=== PATIENT | male | born 1985 | race Caucasian/White ===

== ENCOUNTER → 2016-07-24 | Outpatient (CLI) | payer OTHER ==
--- NOTE | 2016-07-24 17:48 | RADIOLOGY REPORT PS360 ---
US RUQ-(ABD LTD)1ORGAN/QUAD/FU ORDERING PHYSICIAN : Dilip Chavez MD PATIENT AGE: 30 years GENDER: Male INDICATION: ELEVATED LIVER ENZYMES TECHNIQUE: Ultrasound right upper quadrant COMPARISON: None FINDINGS Pancreas. Unremarkable. Liver. No focal lesions. Diffuse mild changes. Right kidney. Normal. 10.6 seem in length. Unremarkable Gallbladder. Trace sludge. No gallstones. Common duct normal diameter. 2.5 mm at hilum of liver IMPRESSION: Gallbladder. No gallstones. Common duct normal Liver with mild diffuse fatty changes, but no significant findings otherwise
== END ==
LOC: RAD 07:44
DX: R74.8 Abnormal levels of other serum enzymes (principal)

== ENCOUNTER 2017-01-15 14:15 | Outpatient (CLI) | payer OTHER ==
[~2017-01-15 14:15] MED LIST: ROSUVASTATIN CA10 MG PO
[2017-01-15] MEDS ORDERED: THE MEDICINE S300 MG PO (15:55)
[2017-01-15] MEDS ORDERED: ZYRTEC ALLERGY10 MG PO (15:56)
[2017-01-15] MEDS ORDERED: CBD OIL PO (16:00)
[2017-01-15] MEDS ORDERED: BACTRIM DS TAB1 EACH PO (16:03)
[2017-01-15] MEDS ORDERED: PERCOCET 5/3251 EACH PO (16:04)
[2017-01-15] MEDS ORDERED: APAP/HYDROCODON1 T10 PO (16:06)
[2017-01-15 16:07] LABS: LYMPH # 2.1 K/mm3 (0.7-4.5)
[2017-01-15 16:10] LABS: HEMOGLOBIN 16.2 g/dL (14.1-18.0)
[2017-01-15 16:19] LABS: BUN 11 mg/dL (7-18); GFR (ESTIMATED) 77 ML/MIN (>60)
[2017-01-15 16:50] VITALS: BP 144/72
[2017-01-15 17:43] VITALS: BP 140/70
[2017-01-15 18:45] VITALS: BP 145/60
[2017-01-15 19:09] VITALS: BP 119/82
== END 2017-01-15 19:11 | disposition home or self-care (01) ==
LOC: COP 14:15
PROVIDERS: Orthopaedic Surgery
DX: S92.322A Displaced fracture of second metatarsal bone, left foot, initial encounter for closed fracture (principal); S92.315D Nondisplaced fracture of first metatarsal bone, left foot, subsequent encounter for fracture with routine healing; S91.312A Laceration without foreign body, left foot, initial encounter
CPT/HCPCS: J3370

== ENCOUNTER 2017-01-16 08:45 | Outpatient (CLI) | payer OTHER ==
[2017-01-16] VITALS (7 sets, daily range): BP systolic 102–129; BP diastolic 61–83
[~2017-01-16 08:45] MED LIST changes: +APAP/HYDROCODON1 T10 PO; +BACTRIM DS TAB1 EACH PO; +CBD OIL PO; +PERCOCET 5/3251 EACH PO; +THE MEDICINE S300 MG PO; +ZYRTEC ALLERGY10 MG PO
== END 2017-01-16 21:50 | disposition home or self-care (01) ==
LOC: COP 08:45
DX: S92.322A Displaced fracture of second metatarsal bone, left foot, initial encounter for closed fracture (principal); S92.315D Nondisplaced fracture of first metatarsal bone, left foot, subsequent encounter for fracture with routine healing; S91.312A Laceration without foreign body, left foot, initial encounter
CPT/HCPCS: J3370

== ENCOUNTER → 2017-01-17 | Outpatient (CLI) | payer OTHER ==
[2017-01-17] VITALS (7 sets, daily range): BP systolic 103–119; BP diastolic 49–72
--- NOTE | 2017-01-17 09:43 | CONSULT NOTE ---
Pharmacokinetic Consult Date of consult: 01/17/17 Time of consult: 940 Referring provider: DR. POWER Reason for consult: VANCOMYCIN LEVEL AND DOSE CHANGE Allergies: Coded Allergies: No Known Allergies (01/02/17) Home Medications: Reported Medications [place]-3 Fatty Acids (Fish Oil) 300 MG PO DAILY Cetirizine Hcl (Zyrtec) 10 MG PO DAILY Sulfamethoxazole/Trimethoprim (Bactrim Ds Tablet) 1 EACH PO BID Oxycodone 5MG/[id number] (Oxycodone-Acetaminophen 5-325) 1-2 TAB PO Q4-6H PRN PAIN HYDROCODONE/ACETAMINOPHEN (Hydrocodon-Acetaminophen 5-325) 1-2 TAB PO Q4-6H PRN PAIN Rosuvastatin Calcium 10 MG PO DAILY #30 Height (feet): 5 Height (inches): 10.00 Medical History: CAD? No Angina: No [place]: No Hypertension? No Hyperlipidemia? No CHF? No DVT? No PE? No COPD? No Asthma? No Anemia? No GERD? No Gastric ulcers? No GI Bleed? No Hernia? No Thyroid Problems? No Hypothyroidism? No CVA? No Seizures? Yes Diabetes? No Renal Insuffiency? No UTI? No Stones? No BPH? No GB Disease: No Nephritic Syndrome? No Asplenia? No Hepatitis? No Sickle Cell Disease? No Arthritis? No Migraines? No Cataracts? No Glaucoma? No MRSA? No HIV? No TB? No Anxiety? No Depression? No Cancer? No More? No Labs: Laboratory Tests 01/17/17 0850: Vancomycin Trough 7.6 Problem List: 1. Foot laceration 2. Foot fracture, left Plan: BASED ON PATIENT'S VANCOMYCIN TROUGH LEVEL OF 7.6 MCG/ML, RECOMMEND INCREASING DOSE FROM 1750 MG Q12H TO 2000 MG Q12H. WILL HAVE TROUGH LEVEL CHECKED ON SUNDAY PRIOR TO AM DOSE. PHARMACY WILL FOLLOW DAILY AND ADJUST APPROPRIATE. ARMEN CHAND PHARMDarnell at 0943
--- NOTE | 2017-01-17 09:43 | CONSULT NOTE ---
Pharmacokinetic Consult Date of consult: 01/17/17 Time of consult: 940 Referring provider: DR. POWER Reason for consult: VANCOMYCIN LEVEL AND DOSE CHANGE Allergies: Coded Allergies: No Known Allergies (01/02/17) Home Medications: Reported Medications [place]-3 Fatty Acids (Fish Oil) 300 MG PO DAILY Cetirizine Hcl (Zyrtec) 10 MG PO DAILY Sulfamethoxazole/Trimethoprim (Bactrim Ds Tablet) 1 EACH PO BID Oxycodone 5MG/[id number] (Oxycodone-Acetaminophen 5-325) 1-2 TAB PO Q4-6H PRN PAIN HYDROCODONE/ACETAMINOPHEN (Hydrocodon-Acetaminophen 5-325) 1-2 TAB PO Q4-6H PRN PAIN Rosuvastatin Calcium 10 MG PO DAILY #30 Height (feet): 5 Height (inches): 10.00 Medical History: CAD? No Angina: No [place]: No Hypertension? No Hyperlipidemia? No CHF? No DVT? No PE? No COPD? No Asthma? No Anemia? No GERD? No Gastric ulcers? No GI Bleed? No Hernia? No Thyroid Problems? No Hypothyroidism? No CVA? No Seizures? Yes Diabetes? No Renal Insuffiency? No UTI? No Stones? No BPH? No GB Disease: No Nephritic Syndrome? No Asplenia? No Hepatitis? No Sickle Cell Disease? No Arthritis? No Migraines? No Cataracts? No Glaucoma? No MRSA? No HIV? No TB? No Anxiety? No Depression? No Cancer? No More? No Labs: Laboratory Tests 01/17/17 0850: Vancomycin Trough 7.6 Problem List: 1. Foot laceration 2. Foot fracture, left Plan: BASED ON PATIENT'S VANCOMYCIN TROUGH LEVEL OF 7.6 MCG/ML, RECOMMEND INCREASING DOSE FROM 1750 MG Q12H TO 2000 MG Q12H. WILL HAVE TROUGH LEVEL CHECKED ON SUNDAY PRIOR TO AM DOSE. PHARMACY WILL FOLLOW DAILY AND ADJUST APPROPRIATE. ARMEN CHAND PHARMDarnell at 0943
== END ==
LOC: COP 08:00
DX: S92.322A Displaced fracture of second metatarsal bone, left foot, initial encounter for closed fracture (principal); S92.315D Nondisplaced fracture of first metatarsal bone, left foot, subsequent encounter for fracture with routine healing; S91.312A Laceration without foreign body, left foot, initial encounter
CPT/HCPCS: J3370

== ENCOUNTER 2017-03-12 08:15 | Observation (INO) | payer OTHER ==
[2017-03-12] VITALS (7 sets, daily range): BP systolic 109–132; BP diastolic 54–85
[~2017-03-12] VITALS: Ht 175.3 cm; Wt 87.6 kg
--- NOTE | 2017-03-12 11:49 | RADIOLOGY REPORT PS360 ---
CTA-CHEST HISTORY: Right-sided chest pain SOB, PAIN ORDERING PHYSICIAN: Russ Maier MD PATIENT AGE: 31 years TECHNIQUE: Helical acquisition obtained following the bolus administration of 60 mL of Isovue 370 followed by a saline bolus. Axial, sagittal, and coronal reformatted images are generated and reviewed. COMPARISON: None FINDINGS: Moderate filling defects are present within the right upper lobe pulmonary artery within the posterior segmental branch and within the right lower lobe pulmonary artery within the superior segmental branch and the right middle lobe pulmonary artery proximally consistent with pulmonary embolus on the right. Calcified nodes are present in the right hilum. Consolidation is present in the posterior segment of the right upper lobe consistent with pneumonia and/or infarction. There is a small right pleural effusion with atelectatic changes in the right lung base. There is some atelectasis also in the left lower lobe and lingula. No acute bony anomalies. No evidence of aortic aneurysm. Upper abdominal images are unremarkable. IMPRESSION: 1. Pulmonary emboli are present on the right. 2. Airspace disease involves the posterior segment of the right upper lobe consistent with pneumonia and/or infarction. 3. Small right effusion with bibasilar atelectatic changes
[2017-03-12 13:28] LABS: HEMOGLOBIN 15.2 g/dL (14.1-18.0); LYMPH # 2.1 K/mm3 (0.7-4.5)
--- NOTE | 2017-03-12 13:54 | HISTORY AND PHYSICAL REPORT ---
Demographics: Admit date: 03/12/17 Chief complaint: shortness of breath, right sided chest pain PRIMARY DIAGNOSIS: PULMONARY EMBOLIS Allergies: Coded Allergies: No Known Allergies (01/02/17) History of present illness: History of present illness: 31 year old white male who is undergoing treatment for osteomyelitis of his left foot following a traumatic injury was seen yesterday during his outpatient antibiotic infusion for shortness of breath and right sided chest pain. CXR was ordered which showed a patchy infiltrate in the right upper lobe. Patient denied fever or cough. He has been on Invanz and Daptomycin for several weeks and vancomycin prior to that for his osteomyelitis. Patient reported pain originated in his right anterior/lateral chest, radiated to right upper back and increased with inspiration. Symptoms were concerning for PE especially with his multiple risk factors. Labs were obtained last evening which showed D. Dimer was >1100. He was given a dose of outpatient Lovenox and CT PE protocol was arranged for this morning. CT was positive for PE with RUL pneumonia verses infarction. Patient admitted to acute care for anticoagulation and further evaluation. Past medical history: Family HX Diabetes Yes CAD No Hypertension No Hyperlipidemia Yes Cancer Yes TB No Immunization HX DT/Tetanus 1-4 Years Ago Pneumonia Never Had TB Test in last year No General CAD? No Angina: No [place]: No Hypertension? No Hyperlipidemia? No CHF? No DVT? No PE? No COPD? No Asthma? No Anemia? No GERD? No Gastric ulcers? No GI Bleed? No Hernia? No Thyroid Problems? No Hypothyroidism? No CVA? No Seizures? Yes Diabetes? No Renal Insuffiency? No UTI? No Stones? No BPH? No GB Disease: No Nephritic Syndrome? No Asplenia? No Hepatitis? No Sickle Cell Disease? No Arthritis? No Migraines? No Cataracts? No Glaucoma? No MRSA? No HIV? No TB? No Anxiety? No Depression? No Cancer? No More? No Past Surgical HX Previous Surgery? None Current home meds: Reported Medications [place]-3 Fatty Acids (Fish Oil) 300 MG PO DAILY Social Hx: Smoking HX Tobacco Yes Type Cigarettes Packs/day < 1 PACK Are you/the child exposed to second-hand smoke: Yes Alcohol Alcohol: No Hx of Drug Use Drug Use? No Patien't marital status is Patient's support system is excellent Review of systems: Constitutional chills, weakness. No: diaphoresis, fever, malaise. Eyes No: no symptoms reported. Ears, Nose, Mouth, Throat No no symptoms reported Respiratory see HPI. Cardiovascular No no symptoms reported Gastrointestinal/Abdominal No no symptoms reported Genitourinary No: no symptoms reported. Musculoskeletal see HPI. Skin No: no symptoms reported. Neurological No: no symptoms reported. Psychiatric No: no symptoms reported. Exam: Lab data for last 24 hours: Laboratory Tests 03/12/17 1230: Sodium 135 L, Potassium 3.6, Chloride 100, Carbon Dioxide 25, BUN 8, Creatinine 1.0, Estimated Creat Clear 130, Estimated GFR (MDRD) 86, Glucose 127 H, Calcium 9.0, Total Bilirubin 0.6, AST 35, ALT 75, Alkaline Phosphatase 118 H, Total Protein 8.0, Albumin 3.7, Globulin 4.3 H, Albumin/Globulin Ratio 0.9 L, PT 11.4, INR 1.05, WBC 7.9, RBC 4.94, Hgb 15.2, Hct 44.4, MCV 89.8, RDW 12.5, Plt Count 215, MPV 9.4, Gran % 66.4, Gran # 5.2, Lymphocytes % 26.0, Monocytes % 4.9 , Eosinophils % 1.9, Basophils % 0.8, Lymphocytes # 2.1, Monocytes # 0.4, Eosinophils # 0.2, Basophils # 0.1, PUBS MCHC 34.3, MCH 30.8 Admission vital signs: 1ST Vital Signs Result Date Time B/P 121/70 03/12 0845 Temp 98.5 03/12 0845 Pulse 68 03/12 0845 Resp 20 03/12 0845 Pulse Ox 98 03/12 1000 O2 Delivery ROOM AIR 03/12 1246 Exam General appearance: alert, awake, no acute distress Eyes: anicteric ENT: mucous membranes moist Neck: normal inspection, non-tender, no JVD Cardiovascular: regular rate & rhythm, no murmur, normal peripheral pulses, no peripheral edema Respiratory: clear, diminished throughout on right especially RUL/RML ABD: non-distended, normal bowel sounds, no rebound, soft Genitourinary: no dysuria, no hematuria Extremities: moves all, left foot with scarring on dorsal aspect, no erythema , no tenderness, no edema, ROM normal Musculoskeletal: equal muscle strength Skin: dry, intact Neuro: alert, no deficit, normal mood/affect, oriented, speech clear Plan: Problem List 1. Pulmonary embolism Assessment/Plan Lovenox for anticoagulation. Start xarelto. Doppler extremities to r/o DVT. Coagulation studies ordered. Consult pulmonology. 2. Osteomyelitis Assessment/Plan Continue Daptomycin and Invanz. Plan: See above at 4439
--- NOTE | 2017-03-12 15:15 | CARDIOVASCULAR REPORT ---
"Venous Exam Indications: 415.19 Other pulmonary embolism and infarction. IMPRESSIONS 1. There is no evidence of significant reflux. 2. No evidence of deep or superficial vein thrombosis involving the veins of the right upper extremity and veins of the left upper extremity History: Risk factors: Recent surgery: PICC line right arm 4 weeks ago.. Bilateral upper extremity venous duplex. Doppler flow study including spectral analysis, color and zapien scale imaging. Location: Vascular laboratory. Patient status: Inpatient. Tables: Venous flow and imaging: + +-------+ + |Location |Overall|Flow properties | + +-------+ + |Right internal jugular|Patent |Normal phasicity; spontaneous; normal | | | |augmentation | + +-------+ + |Right subclavian |Patent |Normal phasicity; spontaneous; normal | | | |augmentation | + +-------+ + |Right axillary |Patent |Normal phasicity; spontaneous; normal | | | |augmentation; compressible | + +-------+ + |Right brachial |Patent |Normal phasicity; spontaneous; normal | | | |augmentation; compressible | + +-------+ + |Right cephalic |Patent |Compressible | + +-------+ + |Right basilic |Patent |Compressible | + +-------+ + |Right radial |Patent |Compressible | + +-------+ + |Right ulnar |Patent |Compressible | + +-------+ + |Left internal jugular |Patent |Normal phasicity; spontaneous; normal | | | |augmentation | + +-------+ + |Left subclavian |Patent |Normal phasicity; spontaneous; normal | | | |augmentation | + +-------+ + |Left axillary |Patent |Normal phasicity; spontaneous; normal | | | |augmentation; compressible | + +-------+ + |Left brachial |Patent |Normal phasicity; spontaneous; normal | | | |augmentation; compressible | + +-------+ + |Left cephalic |Patent |Compressible | + +-------+ + |Left basilic |Patent |Compressible | + +-------+ + |Left radial |Patent |Compressible | + +-------+ + |Left ulnar |Patent |Compressible | + +-------+ + (Report amended ) Electronically signed by: Adebayo Mike [id number]"
--- NOTE | 2017-03-12 15:17 | CARDIOVASCULAR REPORT ---
"Venous Exam Indications: 415.19 Other pulmonary embolism and infarction. IMPRESSIONS 1. There is no evidence of significant Reflux. 2. No evidence of deep or superficial vein thrombosis involving the right lower extremity and left lower extremity Complete lower extremity venous duplex evaluation. Doppler flow study including spectral analysis, color and zapien scale imaging. Location: Vascular laboratory. Patient status: Inpatient. Tables: Venous flow and imaging: + +-------+ + |Location |Overall|Flow properties | + +-------+ + |Right common femoral |Patent |Normal phasicity; spontaneous; | | | |normal augmentation; compressible| + +-------+ + |Right saphenofemoral junction|Patent |Compressible | + +-------+ + |Right profunda femoral |Patent |Compressible | + +-------+ + |Right femoral |Patent |Normal phasicity; spontaneous; | | | |normal augmentation; | | | |compressible; no reflux | + +-------+ + |Right greater saphenous |Patent |Normal phasicity; spontaneous; | | | |normal augmentation; compressible| + +-------+ + |Right popliteal |Patent |Normal phasicity; spontaneous; | | | |normal augmentation; compressible| + +-------+ + |Right posterior tibial |Patent |Compressible | + +-------+ + |Right peroneal |Patent |Compressible | + +-------+ + |Right gastrocnemius |Patent |Compressible | + +-------+ + |Right soleal |Patent |Compressible | + +-------+ + |Left common femoral |Patent |Normal phasicity; spontaneous; | | | |normal augmentation; compressible| + +-------+ + |Left saphenofemoral junction |Patent |Compressible | + +-------+ + |Left profunda femoral |Patent |Compressible | + +-------+ + |Left femoral |Patent |Normal phasicity; spontaneous; | | | |normal augmentation; compressible| + +-------+ + |Left greater saphenous |Patent |Normal phasicity; spontaneous; | | | |normal augmentation; compressible| + +-------+ + |Left popliteal |Patent |Normal phasicity; spontaneous; | | | |normal augmentation; compressible| + +-------+ + |Left posterior tibial |Patent |Compressible | + +-------+ + |Left peroneal |Patent |Compressible | + +-------+ + |Left gastrocnemius |Patent |Compressible | + +-------+ + |Left soleal |Patent |Compressible | + +-------+ + (Report amended ) Electronically signed by: Mook Campbell [id number]"
[2017-03-13 04:27] VITALS: BP 103/58
--- NOTE | 2017-03-13 07:29 | PHARMACY CLINIC NOTE ---
Patient Demographics Patient Demographics Admission date: 03/12/17 Date: 03/13/17 Time: 724 Allergies Coded Allergies: No Known Allergies (01/02/17) HEIGHT- FT: 5 IN: 9.00 K.601 VTE General Information Labs: Laboratory Tests 03/12 1230 Coagulation PT (9.4 - 11.8 SECONDS) 11.4 INR (0.9 - 1.1) 1.05 Hematology Hgb (14.1 - 18.0 g/dL) 15.2 Hct (42.0 - 52.0 %) 44.4 Plt Count (142 - 424 K/mm3) 215 Disclaimer The following section includes nursing documentation that has been pulled in for pharmacy review. Patient's VTE score: 1 Patient's VTE Risk: VERY LOW RISK Clinical trial participant? No VTE prophylaxis NQF [id number] VTE prophylaxis ordered? Yes Type of prophylaxis/treatment: Heparin (2X DOSES LOVENOX, XARELTO ), Lovenox at 8747
[2017-03-13 08:03] VITALS: BP 111/61
--- NOTE | 2017-03-13 08:37 | ACUTE CARE PROGRESS NOTE (QUA) ---
Progress Notes Subjective Date 03/13/17 Time 0740 Note Patient is sitting in bed eating breakfast this morning in NAD. He continues to have some right anterior chest pain that radiates to right posterior shoulder. Pain improves with PRN [place]. He had one dose last evening. He continues to have some mild shortness of breath and increase in pain with inspiration. He reported a slight cough with scant sputum production. Alert and oriented x3. Rate and rhythm regular. No edema. Pulses 2+. Lung sounds diminished on right especially RUL/RML. Abdomen soft and non-tender. LLE with scaring, no tenderness, erythema or edema. Patient/family reports: pain Nursing reports: no complaints Objective Findings Last VS-Temp:98.2 B/P:111/61 Pulse:72 Resp:20 SaO2:97 ROOM AIR Last weight lbs:193 oz:2 K.601 Method:Bed Scales Reviewed: medications, vital signs, lab results, radiology report Assessment/Plan Problem List 1. Pulmonary embolism 2. Osteomyelitis Patient condition Stable Plan: continue current care This inpt stay is expected to cross 2 MNs from start of care No Comments: Continue Xarelto for anticoagulation. His CT is concerning for an infarction verses an underlying inflammatory process which may be related to Daptomycin therapy. BUE/BLE dopplers were negative for DVT. Will hold Daptomycin pending pulmonolgy consult. Continue Invanz. Plan to see infectious disease as outpatient, as well. at 0844
[2017-03-13 09:15] VITALS: BP 106/69
[2017-03-13 16:19] VITALS: BP 106/69
[2017-03-13] MEDS ORDERED: XARELTO15 MG PO (18:02)
[2017-03-13] MEDS ORDERED: SUNMARK NI21 MG/24 H TD (18:23)
--- NOTE | 2017-03-13 18:29 | CONSULT NOTE ---
Consult Note Note: Reason for consultation: Pneumonia and pulmonary embolism Requested by: Alyssa Ibrahim APRN Chief complaint: "I got pain in my chest and short of breath." History of present illness: Mr. Johnson is a 31-year-old man who had been in very good health until January 02 of this year when he dropped a trailer on his LEFT foot causing nondisplaced fractures of the first and second metatarsals associated with a break in the skin. He was sutured and given IV Ancef followed by oral Augmentin. A few weeks later, he developed spreading redness and pain over the wound consistent with cellulitis and was started on IV vancomycin. Subsequently, an MRI of the foot was read as showing "abnormal bone marrow signal intensity within both the second and first metatarsal. This is actually somewhat more prominent involving the first metatarsal and is more prominent than what one would expect for a fracture which is over a month old." The radiologist thought the findings were suspicious for osteomyelitis and he was started on Invanz and daptomycin. All symptoms resolved and the foot wound has completely healed. He received a dose of antibiotics on March 11 and almost immediately developed shortness of breath and right-sided somewhat pleuritic chest pain. He had no cough or fever and no hemoptysis. A chest x-ray showed a patchy infiltrate in the RIGHT upper lobe and a subsequent CT scan with pulmonary embolism protocol disclosed pulmonary emboli. He was given Lovenox initially and admitted. He currently feels well and has no respiratory symptoms. Mr. Johnson has no prior history of a pulmonary disorder but smoked one package of cigarettes daily until recently. He has no history of exposure to tuberculosis and no prior history of pneumonia. Past medical history: Significantly perhaps, in high school, he developed right- sided headaches and weakness of the RIGHT side associated with "seizures" which may represent abscence episodes. He vividly recalls walking down the [place] with the principal during one of these and having an out of body experience. "I could see as walking down the hallway as if I were somewhere else." He does not recall being given any therapy for these and they resolved. He has had no recurrence and has had no other symptoms suggesting a systemic illness like vasculitis. He has hyperlipidemia and was taking rosuvastatin until recently. ALLERGIES: No known medication ALLERGIES. Family history: Noncontributory. 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 His and 5 children are in good health. Review of systems: The rest of a 14 point review of systems is negative. On physical examination, Mr. Johnson is a very pleasant man who is articulate and appears quite healthy. Vital signs: Blood pressure 106/69, pulse 67, temperature 98.5 (and he's been afebrile here) respiratory rate 18 and oxygen saturation 96 percent on room air at rest. HEENT: Sclerae clear; conjunctivae pink; EOMs full; pupils are equal, round and reactive to light and accommodation; external nares unremarkable; oropharynx normal. Neck: No adenopathy; carotids 2+; thyroid not palpable. Chest: Symmetrical expansion; normal percussion note bilaterally; good breath sounds and no adventitious sounds. There was no pleural friction rub. Heart: Regular rhythm; no murmur. Abdomen: Soft, nontender, no masses or organomegaly. Genitourinary: No flank tenderness Skin: No rash; the foot wound was well-healed. Musculoskeletal: No joanna arthritis. No tenderness over the fracture site. Neurological: Grossly intact Extremities: No clubbing or edema I personally reviewed the CT scan of the chest and chest x-rays. There is an alveolar infiltrate in the posterior segment of the RIGHT upper lobe. I think I see a clot in the artery feeding that section. There is evidence of remote granulomatous disease. The PICC line appears to be in good position. A review of blood tests show that he is not anemic and he has never had an elevated white blood cell count here. A culture of the wound was negative when he presented on February 08. I reviewed his current medications. Assessment and plan: Mr. Johnson has presented with an apparent acute pulmonary embolism and I believe the infiltrate is related to pulmonary hemorrhage or infarction. His clinical presentation is consistent with this and the temporal association with using the PICC line suggests it is the source of the clot. That may or may not be the the case but in any event the line seems to have worked thereafter. He has no fever suggesting systemic infection and there is no physical findings suggesting infection of the foot. I agree with your decision to consult an infectious disease specialist to determine whether or not he needs further treatment. For now, I would stop using the PICC line and do not feel he needs the antibiotics, at least until he is evaluated by ID. 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 I would continue Xarelto for at least 3 months until we have more data. I would like to follow up with him at that time. Thank you very much for the opportunity to participate in Mr. Johnson's care. at [id number]
[2017-03-13 19:50] VITALS: BP 106/69
[2017-03-15 03:40] LABS: Antithrombin Antigen 91 % (72-124); Protein C-Functional 125 % (73-180); Protein S-Functional 51 % (63-140)
--- NOTE | 2017-03-15 09:30 | DISCHARGE SUMMARY STANDARD ---
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 CXR was ordered which showed a patchy infiltrate in the right upper lobe. Patient denied fever or cough. He has been on Invanz and Daptomycin for several weeks and vancomycin prior to that for his osteomyelitis. Patient reported pain originated in his right anterior/lateral chest, radiated to right upper back and increased with inspiration. Symptoms were concerning for PE especially with his multiple risk factors. Labs were obtained last evening which showed D. Dimer was >1100. He was given a dose of outpatient Lovenox and CT PE protocol was arranged for this morning. CT was positive for PE with RUL pneumonia verses infarction. Patient admitted to acute care for anticoagulation and further evaluation. Hospital Course Hospital Course: Patient was admitted to acute care. He was given a dose of Lovenox and started on Xarelto therapy for anticoagulation. BUE and BLE dopplers were obtained and found to be negative for DVT. LLE exam was unremarkable. Daptomycin was held d /t its potential for vasculitis and pulmonary complications. Patient did well overnight and has not had any dyspnea or hypoxia. Pulmonology was consulted who feels PE most likely came from his PICC line. Dr. Molina recommended stopping antibiotics, pulling PICC line and referring to ID. He further recommended continuing Xarelto for 3-6 months. 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 States he had "seizure like" issues. He does not remember taking any treatment. Apparently, this was confirmed with a cerebral angiogram. 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 Discharge home on Xarelto. See medication reconcilation for complete list. FU with myself in 3 days. Return to outpatient infusion tomorrow to D/C PICC line. Stop daptomycin. Continue Invanz. Repeat MRI of left foot. Refer to infectious disease to discuss need for ongoing antibiotics. Discharge diagnoses Problem List 1. Pulmonary embolism 2. Osteomyelitis Medications Medications: Discharge meds are as noted. Follow up Follow up in office in: 3 DAYS with: MARCIN FISHER APRN at [phone]
[2017-03-15 16:37] LABS: Anticardiolipin Ab,IgA,Qn <9 APL U/mL (0-11); Anticardiolipin Ab,IgG,Qn <9 GPL U/mL (0-14); Anticardiolipin Ab,IgM,Qn <9 MPL U/mL (0-12); Cytoplasmic (C-ANCA) <1:20 titer (Neg:<1:20); Perinuclear (P-ANCA) <1:20 titer (Neg:<1:20)
[2017-03-16 04:36] LABS: PTT-LA 72.6 sec (0.0-51.9)
[2017-03-16 08:44] LABS: Hexagonal Phase Phospholipid 41 sec (0-11); PTT-LA Mix 64.8 sec (0.0-48.9); dRVVT 160.7 sec (0.0-47.0); dRVVT Confirm 2.3 ratio (0.8-1.2); dRVVT Mix 88.2 sec (0.0-47.0)
[2017-03-16 09:37] LABS: Lupus Reflex Interpretation Comment: (.)
--- OUTSIDE RECORDS SUMMARY | 2017-04-25 06:28 | External Medical Summary Rpt ---
Demographics Preferred Language Surinamese Marital Status Unknown Episcopal Affiliation Unknown Race Unknown Ethnic Group Unknown Author Author , YAZAN HAND Address Unknown Phone [email or web address] Immunization Name Date Rout CVX Reac Dose Comm Prov Is Faci e tion ent ider Refu lity Give sed n Td 05-2 9 999 Hist H149 No H149 (roman 5-19 ori lt), 99 al Info adso rmat rbed ion - Sour ce Unsp ecif ied
--- OUTSIDE RECORDS SUMMARY | 2017-04-25 06:28 | External Medical Summary Rpt ---
Demographics Preferred Language Czech Marital Status Unknown Jew Affiliation Unknown Race Unknown Ethnic Group Unknown Author Author , YAZAN HAND Address Unknown Phone [email or web address] Immunization Name Date Rout CVX Reac Dose Comm Prov Is Faci e tion ent ider Refu lity Give sed n Td 05-2 9 999 Hist H149 No H149 (roman 5-19 ori lt), 99 al Info adso rmat rbed ion - Sour ce Unsp ecif ied
--- OUTSIDE RECORDS SUMMARY | 2017-04-25 06:28 | External Medical Summary Rpt ---
Author Author TULIO Address Unknown Phone Purpose Continuity of Care Document - 01-15-2017 through 2016
--- OUTSIDE RECORDS SUMMARY | 2017-04-25 06:30 | External Medical Summary Rpt ---
Author Author [employer], [employer] Organization [employer] Address Unknown Phone Unavailable Results Lupus Anticoagulant Reflex Observa Value Referen Units Interpr Notes Date tion ce etation Range Dilute 0.0 - sec High No Sep 20 Ruddy 47.0 informati 2017 7:15 viper on in AM venom source time data (dRVVT) in Platelet poor plasma by Coagulati on assay Dilute 0.8 - 1.2 ratio High Performed Sep 20 Ruddy at: BN 2017 7:15 viper - [facility] AM venom time [place] (dRVVT)/C [id number] [place] [address], [place], [place] venom [id number] induced.e Lab xcess Director: phosphomarilee Lopez [Ratio] , in Phone: Platelet [phone] poor 4 plasma by Coagulati on assay Dilute 0.0 - sec High No Sep 20 Ruddy 47.0 informati 2017 7:15 viper on in AM venom source time data (dRVVT) factor substitut ion in Platelet poor plasma by Coagulati on assay --immedia tely after 1:2 addition of normal plasma Lupus 0 - 11 sec No No Mar 20 anticoagu informati informati 2017 7:15 lant on in on in AM neutraliz source source ation data data hexagonal phase phospholi pid [Time] in Platelet poor plasma by Coagulati on assay Lupus Comment . No No Results Apr 11 anticoa : informa informa are 2017 gulant tion in tion in consist 7:15 AM [interp source source ent retatio data data with n] in the Platele presenc t poor e of a plasma lupus anticoa gulant. NOTE: Only persist ent lupus anticoa gulants are thought to be of clinica lsignif icance. For this reason, repeat testing in 12 or more weeks after aniniti al positiv e result should be conside red to confirm or refute thepres ence of a lupus anticoa gulant, dependi ng on clinica l present ation.R esults of lupus anticoa gulant tests may be falsely positiv e in thepres ence of certain anticoa gulant therapi es.Perf ormed at: BN - [facility] [place], [place] [address] Directo r: Louis Lopez MD, Phone: [phone] Activated 0.0 - sec High No Sep 20 partial 51.9 informati 2017 7:15 thrombpla on in AM stin time source data (aPTT).ladi pus sensitive in Platelet poor plasma by Coagulati on assay Activated 0.0 - sec High No Sep 20 partial 48.9 informati 2017 7:15 thrombpla on in AM stin time source data (aPTT).ladi pus sensitive .factor substitut ion in Platelet poor plasma by Coagulati on assay --immedia tely after 4:1 addition of normal plasma CBC W Auto Differential panel in Blood Observa Value Referen Units Interpr Notes Date tion ce etation Range Basophils 0 - 0.2 K/MM3 Normal No Sep 20 informati 2017 7:15 [#/volume on in AM ] in source Blood by data Automated count Basophils 0.1 - 2.0 % Normal No Sep 20 /100 informati 2017 7:15 leukocyte on in AM s in source Blood by data Automated count Eosinophi 0.0 - 0.4 K/mm3 Normal No Sep 20 ls informati 2016 7:15 [#/volume on in AM ] in source Blood by data Automated count Eosinophi 0.1 - % Normal No Sep 20 ls/100 12.0 informati 2016 7:15 leukocyte on in AM s in source Blood by data Automated count Granulocy 1.3 - 8.0 K/mm3 Normal No Sep 20 heike informati 2017 7:15 [#/volume on in AM ] in source Blood by data Automated count Granulocy 37.0 - % Normal No Sep 20 heike/100 80.0 informati 2017 7:15 leukocyte on in AM s in source Blood by data Automated count Hematocri 42.0 - % Normal No Sep 20 t [Volume 52.0 informati 2017 7:15 on in AM Fraction] source of Blood data Hemoglobi 14.1 - g/dL Normal No Sep 20 n 18.0 informati 2017 7:15 [Mass/vol on in AM ume] in source Blood data Lymphocyt 0.7 - 4.5 K/mm3 Normal No Sep 20 es informati 2017 7:15 [#/volume on in AM ] in source Unspecifi data ed specimen by Automated count Lymphocyt 10 - 50 % Normal No Sep 20 es informati 2017 7:15 [#/volume on in AM ] in source Unspecifi data ed specimen by Automated count Erythrocy 27 - 31.2 pg Normal No Sep 20 te mean informati 2017 7:15 corpuscul on in AM ar source hemoglobi data n [Entitic mass] Erythrocy 31.8 - g/dl Normal No Sep 20 te mean 35.4 informati 2017 7:15 corpuscul on in AM ar source hemoglobi data n concentra tion [Mass/vol ume] by Automated count Erythrocy 82.2 - fl Normal No Sep 20 te mean 97.8 informati 2017 7:15 corpuscul on in AM ar volume source [Entitic data volume] by Automated count Monocytes 0.1 - 1.0 K/mm3 Normal No Sep 20 informati 2017 7:15 [#/volume on in AM ] in source Blood by data Automated count Monocytes 1.7 - 9.3 % Normal No Sep 20 /100 informati 2017 7:15 leukocyte on in AM s in source Blood by data Automated count Platelet 7.4 - fl Normal No Sep 20 mean 10.4 informati 2017 7:15 volume on in AM [Entitic source volume] data in Blood by Automated count Platelets 142 - 424 K/mm3 No No Sep 20 informati informati 2017 7:15 [#/volume on in on in AM ] in source source Blood data data Erythrocy 4.6 - 6.2 M/mm3 Normal No Sep 20 heike informati 2017 7:15 [#/volume on in AM ] in source Amniotic data fluid Erythrocy 11.5 - % Normal No Sep 20 te 17.5 informati 2016 7:15 distribut on in AM ion width source [Entitic data volume] by Automated count Leukocyte 4.8 - K/MM3 Normal No Sep 20 s 10.8 informati 2016 7:15 [#/volume on in AM ] in source Blood data Erythrocyte sedimentation rate by Westergren method Observa Value Referen Units Interpr Notes Date tion ce etation Range Erythrocy 0 - 15 mm/hr Normal No Sep 20 te informati 2016 7:15 sedimenta on in AM tion rate source by data Westergre n method DNA double strand Ab [Units/volume] in Serum Observa Value Referen Units Interpr Notes Date tion ce etation Range DNA 0 - 9 IU/mL No Negative Mar 21 double informati 2016 strand Ab on in <5Equivoc 12:08 PM source al 5 - [Units/vo data 9Positive lume] in Serum >9Perform ed at: [facility] [id number] [place], [place] [id number] Medical Aide: Samy Tay PhD, Phone: [phone] Antinuclear Antibodies, IFA Observa Value Referen Units Interpr Notes Date tion ce etation Range Nuclear . No No Negative Mar 21 Ab informati informati 2016 [Titer] on in on in <1:80Bord 12:08 PM in Serum source source callie by data data 1:80Posit Immunoflu viktoriya orescence >1:80Perf ormed at: [facility] [id number] [place], [place] [id number] Medical Aide: Samy Tay PhD, Phone: [phone] Comprehensive metabolic 2000 panel in Serum or Plasma Observa Value Referen Units Interpr Notes Date tion ce etation Range Albumin/G 1.1 - 1.8 No Normal No Mar 21 lobulin informati informati 2016 [Mass on in on in 12:08 PM ratio] in source source Serum or data data Plasma Albumin 3.4 - 5.0 gm/dL Normal No Mar 21 [Mass/vol informati 2016 ume] in on in 12:08 PM Serum or source Plasma data Alkaline 46 - 116 U/L High No Mar 21 phosphata informati 2016 se on in 12:08 PM [Enzymati source c data activity/ volume] in Serum or Plasma Bilirubin 0.2 - 1.0 mg/dL Normal No Mar 21 .total informati 2016 [Mass/vol on in 12:08 PM ume] in source Serum or data Plasma Urea 7 - 18 mg/dL Normal No Mar 21 nitrogen informati 2016 [Mass/vol on in 12:08 PM ume] in source Serum or data Plasma Calcium 8.5 - mg/dL Normal No Mar 21 [Mass/vol 10.1 informati 2017 ume] in on in 12:08 PM Serum or source Plasma data Chloride 98 - 107 mmoL/L Normal No Mar 21 [Moles/vo informati 2016 lume] in on in 12:08 PM Serum or source Plasma data Carbon 21.0 - mmoL/L Normal No Mar 21 dioxide, 32.0 informati 2017 total on in 12:08 PM [Moles/vo source lume] in data Serum or Plasma Creatinin 0.70 - mg/dL Normal No Mar 21 e 1.30 inform2016 [Mass/vol on in 12:08 PM ume] in source Serum or data Plasma Estimated >60 ML/MIN No REFERENCE Mar 21 informati RANGE: 2017 glomerula on in >60 12:08 PM r source ML/MIN/1. filtratio data 73 SQUARE n rate METERSIf (GF this patient is -A merican, then multiply theresult by 1.210. Globulin 1.3 - 3.2 gm/dL High No Mar 21 [Mass/vol informati 2016 ume] in on in 12:08 PM Serum source data Glucose 74 - 106 mg/dL Normal No Mar 21 [Mass/vol informati 2016 ume] in on in 12:08 PM Serum or source Plasma data Potassium 3.5 - 5.1 mmoL/L Normal No Mar 212016 [Moles/vo on in 12:08 PM lume] in source Serum or data Plasma Sodium 136 - 145 mmoL/L Normal No Mar 21 [Moles/vo informati 2017 lume] in on in 12:08 PM Serum or source Plasma data Aspartate 15 - 37 U/L Normal No Mar 212016 aminotran on in 12:08 PM sferase source [Enzymati data c activity/ volume] in Serum or Plasma Alanine 12 - 78 U/L High No Mar 21 aminotran inform2016 sferase on in 12:08 PM [Enzymati source c data activity/ volume] in Serum or Plasma Protein 6.4 - 8.2 gm/dL Normal No Mar 21 [Mass/vol informati 2016 ume] in on in 12:08 PM Serum or source Plasma data CRP Observa Value Referen Units Interpr Notes Date tion ce etation Range CRP 0.0 - 0.9 MG/DL No No Mar 21 informati informati 2017 on in on in 12:08 PM source source data data CBC W Auto Differential panel in Blood Observa Value Referen Units Interpr Notes Date tion ce etation Range Basophils 0 - 0.2 K/MM3 Normal No Mar 212016 [#/volume on in 12:08 PM ] in source Blood by data Automated count Basophils 0.1 - 2.0 % Normal No Mar 21 /100 2016 leukocyte on in 12:08 PM s in source Blood by data Automated count Eosinophi 0.0 - 0.4 K/mm3 Normal No Mar 21 ls 2016 [#/volume on in 12:08 PM ] in source Blood by data Automated count Eosinophi 0.1 - % Normal No Mar 21 ls/100 12.0 inform2016 leukocyte on in 12:08 PM s in source Blood by data Automated count Granulocy 1.3 - 8.0 K/mm3 Normal No Mar 21 heike 2016 [#/volume on in 12:08 PM ] in source Blood by data Automated count Granulocy 37.0 - % Normal No Mar 21 heike/100 80.0 2016 leukocyte on in 12:08 PM s in source Blood by data Automated count Hematocri 42.0 - % Normal No Mar 21 t [Volume 52.0 2016 on in 12:08 PM Fraction] source of Blood data Hemoglobi 14.1 - g/dL Normal No Mar 21 n 18.0 2016 [Mass/vol on in 12:08 PM ume] in source Blood data Lymphocyt 0.7 - 4.5 K/mm3 Normal No Mar 21 es 2016 [#/volume on in 12:08 PM ] in source Unspecifi data ed specimen by Automated count Lymphocyt 10 - 50 % Normal No Mar 21 es 2016 [#/volume on in 12:08 PM ] in source Unspecifi data ed specimen by Automated count Erythrocy 27 - 31.2 pg Normal No Mar 21 te mean 2016 corpuscul on in 12:08 PM ar source hemoglobi data n [Entitic mass] Erythrocy 31.8 - g/dl Normal No Mar 21 te mean 35.4 2016 corpuscul on in 12:08 PM ar source hemoglobi data n concentra tion [Mass/vol ume] by Automated count Erythrocy 82.2 - fl Normal No Mar 21 te mean 97.8 2016 corpuscul on in 12:08 PM ar volume source [Entitic data volume] by Automated count Monocytes 0.1 - 1.0 K/mm3 Normal No Mar 212016 [#/volume on in 12:08 PM ] in source Blood by data Automated count Monocytes 1.7 - 9.3 % Normal Mar 21 /100 2016 leukocyte on in 12:08 PM s in source Blood by data Automated count Platelet 7.4 - fl Normal Mar 21 mean 10.4 2016 volume on in 12:08 PM [Entitic source volume] data in Blood by Automated count Platelets 142 - 424 K/mm3 Normal No Mar 212016 [#/volume on in 12:08 PM ] in source Blood data Erythrocy 4.6 - 6.2 M/mm3 Normal No Mar 21 heike 2016 [#/volume on in 12:08 PM ] in source Amniotic data fluid Erythrocy 11.5 - % Normal Mar 21 te 17.5 2016 distribut on in 12:08 PM ion width source [Entitic data volume] by Automated count Leukocyte 4.8 - K/MM3 Normal No Mar 21 s 10.8 2016 [#/volume on in 12:08 PM ] in source Blood data Erythrocyte sedimentation rate by Westergren method Observa Value Referen Units Interpr Notes Date tion ce etation Range Erythrocy 0 - 15 mm/hr High No Mar 21 te 2016 sedimenta on in 12:08 PM tion rate source by data Westergre n method Comprehensive metabolic 2000 panel in Serum or Plasma Observa Value Referen Units Interpr Notes Date tion ce etation Range Albumin/G 1.1 - 1.8 No Low No Mar 16 lobulin informati 2016 [Mass on in on in 10:00 AM ratio] in source source Serum or data data Plasma Albumin 3.4 - 5.0 gm/dL Normal No Mar 16 [Mass/vol 2016 ume] in on in 10:00 AM Serum or source Plasma data Alkaline 46 - 116 U/L High No Mar 16 phosphata 2016 se on in 10:00 AM [Enzymati source c data activity/ volume] in Serum or Plasma Bilirubin 0.2 - 1.0 mg/dL Normal No Mar 16 .total 2016 [Mass/vol on in 10:00 AM ume] in source Serum or data Plasma Urea 7 - 18 mg/dL Normal No Mar 16 nitrogen informati 2016 [Mass/vol on in 10:00 AM ume] in source Serum or data Plasma Calcium 8.5 - mg/dL Normal No Mar 16 [Mass/vol 10.1 informati 2016 ume] in on in 10:00 AM Serum or source Plasma data Chloride 98 - 107 mmoL/L Normal No Mar 16 [Moles/vo informati 2017 lume] in on in 10:00 AM Serum or source Plasma data Carbon 21.0 - mmoL/L Normal No Mar 16 dioxide, 32.0 informati 2017 total on in 10:00 AM [Moles/vo source lume] in data Serum or Plasma Creatinin 0.70 - mg/dL Normal No Mar 16 e 1.30 informati 2016 [Mass/vol on in 10:00 AM ume] in source Serum or data Plasma Estimated >60 ML/MIN No REFERENCE Mar 16 informati RANGE: 2017 glomerula on in >60 10:00 AM r source ML/MIN/1. filtratio data 73 SQUARE n rate METERSIf (GF this patient is -A merican, then multiply theresult by 1.210. Globulin 1.3 - 3.2 gm/dL High No Mar 16 [Mass/vol informati 2016 ume] in on in 10:00 AM Serum source data Glucose 74 - 106 mg/dL Normal No Mar 16 [Mass/vol informati 2016 ume] in on in 10:00 AM Serum or source Plasma data Potassium 3.5 - 5.1 mmoL/L Normal No Mar 16 inform2016 [Moles/vo on in 10:00 AM lume] in source Serum or data Plasma Sodium 136 - 145 mmoL/L Normal No Mar 16 [Moles/vo informati 2017 lume] in on in 10:00 AM Serum or source Plasma data Aspartate 15 - 37 U/L High No Mar 16 informati 2016 aminotran on in 10:00 AM sferase source [Enzymati data c activity/ volume] in Serum or Plasma Alanine 12 - 78 U/L High No Mar 16 aminotran informati 2016 sferase on in 10:00 AM [Enzymati source c data activity/ volume] in Serum or Plasma Protein 6.4 - 8.2 gm/dL Normal No Mar 16 [Mass/vol informati 2017 ume] in on in 10:00 AM Serum or source Plasma data Creatine kinase [Enzymatic activity/volume] in Serum or Plasma Observa Value Referen Units Interpr Notes Date tion ce etation Range Creatine 39 - 308 U/L Normal No Mar 16 kinase 2016 [Enzymati on in 10:00 AM c source activity/ data volume] in Serum or Plasma CBC W Auto Differential panel in Blood Observa Value Referen Units Interpr Notes Date ti ce etation Range Basophils 0 - 0.2 K/MM3 Normal No Mar 16 inform2016 [#/volume on in 10:00 AM ] in source Blood by data Automated count Basophils 0.1 - 2.0 % Normal No Mar 16 / inform2016 leukocyte on in 10:00 AM s in source Blood by data Automated count Eosinophi 0.0 - 0.4 K/mm3 Normal No Mar 16 ls informati 2016 [#/volume on in 10:00 AM ] in source Blood by data Automated count Eosinophi 0.1 - % Normal No Mar 16 ls/100 12.0 inform2016 leukocyte on in 10:00 AM s in source Blood by data Automated count Granulocy 1.3 - 8.0 K/mm3 Normal No Mar 16 heike 2016 [#/volume on in 10:00 AM ] in source Blood by data Automated count Granulocy 37.0 - % Normal No Mar 16 heike/100 80.0 inform2016 leukocyte on in 10:00 AM s in source Blood by data Automated count Hematocri 42.0 - % Normal No Mar 16 t [Volume 52.0 informati 2016 on in 10:00 AM Fraction] source of Blood data Hemoglobi 14.1 - g/dL Normal No Mar 16 n 18.0 inform2016 [Mass/vol on in 10:00 AM ume] in source Blood data Lymphocyt 0.7 - 4.5 K/mm3 Normal No Mar 16 es informati 2016 [#/volume on in 10:00 AM ] in source Unspecifi data ed specimen by Automated count Lymphocyt 10 - 50 % Normal No Mar 16 es informati 2016 [#/volume on in 10:00 AM ] in source Unspecifi data ed specimen by Automated count Erythrocy 27 - 31.2 pg Normal No Mar 16 te mean informati 2017 corpuscul on in 10:00 AM ar source hemoglobi data n [Entitic mass] Erythrocy 31.8 - g/dl Normal No Mar 16 te mean 35.4 2016 corpuscul on in 10:00 AM ar source hemoglobi data n concentra tion [Mass/vol ume] by Automated count Erythrocy 82.2 - fl Normal No Mar 16 te mean 97.8 2016 corpuscul on in 10:00 AM ar volume source [Entitic data volume] by Automated count Monocytes 0.1 - 1.0 K/mm3 Normal No Mar 162016 [#/volume on in 10:00 AM ] in source Blood by data Automated count Monocytes 1.7 - 9.3 % Normal No Mar 16 /100 2016 leukocyte on in 10:00 AM s in source Blood by data Automated count Platelet 7.4 - fl Normal No Mar 16 mean 10.4 2016 volume on in 10:00 AM [Entitic source volume] data in Blood by Automated count Platelets 142 - 424 K/mm3 No No Mar 162016 [#/volume on in on in 10:00 AM ] in source source Blood data data Erythrocy 4.6 - 6.2 M/mm3 Normal No Mar 16 heike 2016 [#/volume on in 10:00 AM ] in source Amniotic data fluid Erythrocy 11.5 - % Normal No Mar 16 te 17.5 2016 distribut on in 10:00 AM ion width source [Entitic data volume] by Automated count Leukocyte 4.8 - K/MM3 Normal No Mar 16 s 10.8 2016 [#/volume on in 10:00 AM ] in source Blood data Erythrocyte sedimentation rate by Westergren method Observa Value Referen Units Interpr Notes Date tion ce etation Range COMMENTS TO ORDER ENTRY: PLEASE ADD TO BLOOD IN LAB Erythrocy 0 - 15 mm/hr High No Mar 132016 5:15 sedimenta on in PM tion rate source by data Westergre n method CRP Observa Value Referen Units Interpr Notes Date tion ce etation Range COMMENTS TO ORDER ENTRY: PLEASE ADD TO BLOOD IN LAB CRP 0.0 - 0.9 MG/DL High No Mar 132016 5:15 on in PM source data F5 [id number] [Presence] in Blood or Tissue by Molecular genetics method Observa Value Referen Units Interpr Notes Date tion ce etation Range FACTOR V LEIDEN MUTATION: RESULT = NEGATIVE (NO MUTATION FOUND) Performing site: [address] [address] Dir: Abigail Farrell MD For inquiries, the physician may contact Branch: [phone] Lab: [phone] FACTOR V LEIDEN MUTATION: RESULT = NEGATIVE (NO MUTATION FOUND) Performing site: [address] [address] Dir: Abigail Farrell MD For inquiries, the physician may contact Branch: [phone] Lab: [phone] Antithrombin Ag [Units/volume] in Platelet poor plasma by Immunologic method Observa Value Referen Units Interpr Notes Date tion ce etation Range Antithrom 72 - 124 % No This test Mar 12 bin Ag informati was 2017 1:20 [Units/vo on in developed PM lume] in source and its Platelet data performan poor ce plasma by character isticsdet Immunolog ermined ic method by [facility]. It has not been cleared orapprove d by the Food and Drug Administr ation. Protein C actual/normal in Platelet poor plasma by Coagulation assay Observa Value Referen Units Interpr Notes Date tion ce etation Range Protein C 73 - 180 % No Performed Mar 12 informati at: BN 2017 1:20 actual/no on in - [facility] PM rmal in source Platelet data [place] poor [id number] plasma by [place] on assay [place], [place] [id number] Medical Aide: Louis Lopez MD, Phone: [phone] Protein S actual/normal in Platelet poor plasma by Coagulation assay Observa Value Referen Units Interpr Notes Date tion ce etation Range Protein S 63 - 140 % Low A Mar 12 deficienc 2016 1:20 actual/no y of PM rmal in protein S Platelet (PS), poor either plasma by congenita l Coagulati oracquire on assay d, increases the risk of thromboem bolism. PSactivit y levels may be falsely low in individua ls withAPCR/ Factor V Leiden. Consider performin g free protein Santigen in those with APCR/Fact or V Leiden before making adiagnosi s of protein S deficienc y. Acquired PS deficienc yis more common than congenita l deficienc y. PS valuesdec rease with normal , and are also dependent onage, sex and hormone status. PS values tend to be lower clementina younger age group and lower in women than in men. Levelsmay be decreased in pre-menop ausal women on oralcontr aceptive agents. Acquired deficienc y can occur as aresult of vitamin K deficienc y or antagonis m, severehep atic disorders , (hepatiti s, cirrhosis , etc.), nephrotic syndrome, inflammat ory bowel disease, certainch emotherap eutic agents, L-asparag inse therapy, sepsis,di sseminate d intravasc ular coagulati on (DIC) and acutethro mbosis. Levels may be decreased in patients withpolyc ythemia vera, sickle cell disease and essential thrombocy themia. Repeat evaluatio n on a new plasma sampleto confirm or refute this result should be considere d,after ruling out acquired causes, depending on the clinicals cenario. CBC W Auto Differential panel in Blood Observa Value Referen Units Interpr Notes Date tion ce etation Range Basophils 0 - 0.2 K/MM3 Normal No Mar 122016 [#/volume on in 12:30 PM ] in source Blood by data Automated count Basophils 0.1 - 2.0 % Normal No Mar 122016 leukocyte on in 12:30 PM s in source Blood by data Automated count Eosinophi 0.0 - 0.4 K/mm3 Normal No Mar 12 ls 2016 [#/volume on in 12:30 PM ] in source Blood by data Automated count Eosinophi 0.1 - % Normal Mar 12 ls/100 12.0 2016 leukocyte on in 12:30 PM s in source Blood by data Automated count Granulocy 1.3 - 8.0 K/mm3 Normal No Mar 12 heike 2016 [#/volume on in 12:30 PM ] in source Blood by data Automated count Granulocy 37.0 - % Normal No Mar 12 heike/100 80.0 2016 leukocyte on in 12:30 PM s in source Blood by data Automated count Hematocri 42.0 - % Normal No Mar 12 t [Volume 52.0 2016 on in 12:30 PM Fraction] source of Blood data Hemoglobi 14.1 - g/dL Normal No Mar 12 n 18.0 2016 [Mass/vol on in 12:30 PM ume] in source Blood data Lymphocyt 0.7 - 4.5 K/mm3 Normal No Mar 12 es 2016 [#/volume on in 12:30 PM ] in source Unspecifi data ed specimen by Automated count Lymphocyt 10 - 50 % Normal No Mar 12 es 2016 [#/volume on in 12:30 PM ] in source Unspecifi data ed specimen by Automated count Erythrocy 27 - 31.2 pg Normal No Mar 12 te mean 2016 corpuscul on in 12:30 PM ar source hemoglobi data n [Entitic mass] Erythrocy 31.8 - g/dl Normal No Mar 12 te mean 35.4 2016 corpuscul on in 12:30 PM ar source hemoglobi data n concentra tion [Mass/vol ume] by Automated count Erythrocy 82.2 - fl Normal No Mar 12 te mean 97.8 2016 corpuscul on in 12:30 PM ar volume source [Entitic data volume] by Automated count Monocytes 0.1 - 1.0 K/mm3 Normal No Mar 122016 [#/volume on in 12:30 PM ] in source Blood by data Automated count Monocytes 1.7 - 9.3 % Normal No Mar 12 /100 2016 leukocyte on in 12:30 PM s in source Blood by data Automated count Platelet 7.4 - fl Normal No Mar 12 mean 10.4 2016 volume on in 12:30 PM [Entitic source volume] data in Blood by Automated count Platelets 142 - 424 K/mm3 Normal No Mar 122016 [#/volume on in 12:30 PM ] in source Blood data Erythrocy 4.6 - 6.2 M/mm3 Normal No Mar 12 heike 2016 [#/volume on in 12:30 PM ] in source Amniotic data fluid Erythrocy 11.5 - % Normal No Mar 12 te 17.5 2016 distribut on in 12:30 PM ion width source [Entitic data volume] by Automated count Leukocyte 4.8 - K/MM3 Normal No Mar 12 s 10.8 2016 [#/volume on in 12:30 PM ] in source Blood data Comprehensive metabolic 2000 panel in Serum or Plasma Observa Value Referen Units Interpr Notes Date tion ce etation Range Albumin/G 1.1 - 1.8 No Low No Mar 12 lobulin informati informati 2017 [Mass on in on in 12:30 PM ratio] in source source Serum or data data Plasma Albumin 3.4 - 5.0 gm/dL Normal No Mar 12 [Mass/vol informati 2017 ume] in on in 12:30 PM Serum or source Plasma data Alkaline 46 - 116 U/L High No Mar 12 phosphata informati 2017 se on in 12:30 PM [Enzymati source c data activity/ volume] in Serum or Plasma Bilirubin 0.2 - 1.0 mg/dL Normal No Mar 12 .total informati 2016 [Mass/vol on in 12:30 PM ume] in source Serum or data Plasma Urea 7 - 18 mg/dL Normal No Mar 12 nitrogen informati 2016 [Mass/vol on in 12:30 PM ume] in source Serum or data Plasma Calcium 8.5 - mg/dL Normal No Mar 12 [Mass/vol 10.1 informati 2016 ume] in on in 12:30 PM Serum or source Plasma data Chloride 98 - 107 mmoL/L Normal No Mar 12 [Moles/vo informati 2017 lume] in on in 12:30 PM Serum or source Plasma data Carbon 21.0 - mmoL/L Normal No Mar 12 dioxide, 32.0 informati 2017 total on in 12:30 PM [Moles/vo source lume] in data Serum or Plasma Creatinin 0.70 - mg/dL Normal No Mar 12 e 1.30 informati 2016 [Mass/vol on in 12:30 PM ume] in source Serum or data Plasma Creatinin 50 - 200 ML/MIN Normal No Mar 12 e renal informati 2017 clearance on in 12:30 PM source predicted data by Cockcroft -Gault formula Estimated >60 ML/MIN No REFERENCE Mar 12 informati RANGE: 2017 glomerula on in >60 12:30 PM r source ML/MIN/1. filtratio data 73 SQUARE n rate METERSIf (GF this patient is -A merican, then multiply theresult by 1.210. Globulin 1.3 - 3.2 gm/dL High No Mar 12 [Mass/vol informati 2016 ume] in on in 12:30 PM Serum source data Glucose 74 - 106 mg/dL High No Mar 12 [Mass/vol informati 2017 ume] in on in 12:30 PM Serum or source Plasma data Potassium 3.5 - 5.1 mmoL/L Normal No Mar 12 inform2016 [Moles/vo on in 12:30 PM lume] in source Serum or data Plasma Sodium 136 - 145 mmoL/L Low No Mar 12 [Moles/vo informati 2016 lume] in on in 12:30 PM Serum or source Plasma data Aspartate 15 - 37 U/L Normal No Mar 12 inform2016 aminotran on in 12:30 PM sferase source [Enzymati data c activity/ volume] in Serum or Plasma Alanine 12 - 78 U/L Normal No Mar 12 aminotran informati 2016 sferase on in 12:30 PM [Enzymati source c data activity/ volume] in Serum or Plasma Protein 6.4 - 8.2 gm/dL Normal No Mar 12 [Mass/vol informati 2016 ume] in on in 12:30 PM Serum or source Plasma data INR in Blood by Coagulation assay Observa Value Referen Units Interpr Notes Date tion ce etation Range IS PATIENT ON ANTICOAGULANTS? N PTT RESULTS MUST BE CALLED IF PT ON HEPARIN!!! Y INR in 0.9 - 1.1 No Normal INDICATIO Mar 12 Blood by informati N 2016 Coagulati on in 12:30 PM on assay source INR data RANGETHER APY FOR DVT, PE, ATRIAL FIB; 2.0 - 3.0PROPHY LAXIS FOR VTETHERAP Y FOR MECHANICA L HEART 2.5 - 3.5VALVE; PREVENTIO N OF SYSTEMICE MBOLISM SECONDARY TO AMI Prothromb 9.4 - SECONDS Normal No Mar 12 in time 11.8 inform2016 (PT) in on in 12:30 PM Platelet source poor data plasma by Coagulati on assay Fibrin D-dimer FEU [Mass/volume] in Platelet poor plasma Observa Value Referen Units Interpr Notes Date tion ce etation Range Fibrin 0 - 400 ng/mL High Mar 11 D-dimer alert NOTIFICAT 2017 7:20 FEU ION PM [Mass/vol RESULT ume] in PARK Platelet D TO poor plasma 03/11/172019 JSThe D-Dimer values are presented in units of mass(ng/m L) ofD-Dimer units(DDU ).This test has been FDA approved as an aid in the assessmen tand evaluatio n of suspected DIC, and thromboem bolic eventsinc luding PE and DVT. However, it does not have approvalf or cut-off values for the exclusion of these condition s. Comprehensive metabolic 2000 panel in Serum or Plasma Observa Value Referen Units Interpr Notes Date tion ce etation Range Albumin/G 1.1 - 1.8 No Low No Mar 11 lobulin informati informati 2016 7:20 [Mass on in on in PM ratio] in source source Serum or data data Plasma Albumin 3.4 - 5.0 gm/dL Normal No Mar 11 [Mass/vol informati 2016 7:20 ume] in on in PM Serum or source Plasma data Alkaline 46 - 116 U/L High No Mar 11 phosphata informati 2016 7:20 se on in PM [Enzymati source c data activity/ volume] in Serum or Plasma Bilirubin 0.2 - 1.0 mg/dL Normal No Mar 11 .total informati 2016 7:20 [Mass/vol on in PM ume] in source Serum or data Plasma Urea 7 - 18 mg/dL No No Mar 11 nitrogen informati informati 2017 7:20 [Mass/vol on in on in PM ume] in source source Serum or data data Plasma Calcium 8.5 - mg/dL Normal No Mar 11 [Mass/vol 10.1 informati 2016 7:20 ume] in on in PM Serum or source Plasma data Chloride 98 - 107 mmoL/L Normal No Mar 11 [Moles/vo informati 2016 7:20 lume] in on in PM Serum or source Plasma data Carbon 21.0 - mmoL/L Normal No Mar 11 dioxide, 32.0 informati 2016 7:20 total on in PM [Moles/vo source lume] in data Serum or Plasma Creatinin 0.70 - mg/dL Normal No Mar 11 e 1.30 informati 2016 7:20 [Mass/vol on in PM ume] in source Serum or data Plasma Creatinin 50 - 200 ML/MIN Normal No Mar 11 e renal informati 2016 7:20 clearance on in PM source predicted data by Cockcroft -Gault formula Estimated >60 ML/MIN No REFERENCE Mar 11 informati RANGE: 2017 7:20 glomerula on in >60 PM r source ML/MIN/1. filtratio data 73 SQUARE n rate METERSIf (GF this patient is -A merican, then multiply theresult by 1.210. Globulin 1.3 - 3.2 gm/dL High No Mar 11 [Mass/vol informati 2016 7:20 ume] in on in PM Serum source data Glucose 74 - 106 mg/dL Normal No Mar 11 [Mass/vol informati 2016 7:20 ume] in on in PM Serum or source Plasma data Potassium 3.5 - 5.1 mmoL/L Normal No Mar [id number] 7:20 [Moles/vo on in PM lume] in source Serum or data Plasma Sodium 136 - 145 mmoL/L Normal No Mar 11 [Moles/vo informati 2016 7:20 lume] in on in PM Serum or source Plasma data Aspartate 15 - 37 U/L No No Mar 11 informati informati 2016 7:20 aminotran on in on in PM sferase source source [Enzymati data data c activity/ volume] in Serum or Plasma Alanine 12 - 78 U/L High No Mar 11 aminotran 2016 7:20 sferase on in PM [Enzymati source c data activity/ volume] in Serum or Plasma Protein 6.4 - 8.2 gm/dL Normal No Mar 11 [Mass/vol informati 2016 7:20 ume] in on in PM Serum or source Plasma data Creatine kinase [Enzymatic activity/volume] in Serum or Plasma Observa Value Referen Units Interpr Notes Date tion ce etation Range Creatine 39 - 308 U/L Normal No Mar 11 kinase 2016 7:20 [Enzymati on in PM c source activity/ data volume] in Serum or Plasma CBC W Auto Differential panel in Blood Observa Value Referen Units Interpr Notes Date tion ce etation Range Basophils 0 - 0.2 K/MM3 Normal No Mar 11 informati 2016 7:20 [#/volume on in PM ] in source Blood by data Automated count Basophils 0.1 - 2.0 % Normal No Mar 11 informati 2016 7:20 leukocyte on in PM s in source Blood by data Automated count Eosinophi 0.0 - 0.4 K/mm3 Normal No Mar 11 ls informati 2016 7:20 [#/volume on in PM ] in source Blood by data Automated count Eosinophi 0.1 - % Normal No Mar 11 ls/100 12.0 informati 2017 7:20 leukocyte on in PM s in source Blood by data Automated count Granulocy 1.3 - 8.0 K/mm3 Normal No Mar 11 heike informati 2017 7:20 [#/volume on in PM ] in source Blood by data Automated count Granulocy 37.0 - % Normal No Mar 11 heike/100 80.0 informati 2017 7:20 leukocyte on in PM s in source Blood by data Automated count Hematocri 42.0 - % Normal No Mar 11 t [Volume 52.0 informati 2016 7:20 on in PM Fraction] source of Blood data Hemoglobi 14.1 - g/dL Normal No Mar 11 n 18.0 informati 2017 7:20 [Mass/vol on in PM ume] in source Blood data Lymphocyt 0.7 - 4.5 K/mm3 Normal No Mar 11 es informati 2017 7:20 [#/volume on in PM ] in source Unspecifi data ed specimen by Automated count Lymphocyt 10 - 50 % Normal No Mar 11 es informati 2016 7:20 [#/volume on in PM ] in source Unspecifi data ed specimen by Automated count Erythrocy 27 - 31.2 pg Normal No Mar 11 te mean informati 2016 7:20 corpuscul on in PM ar source hemoglobi data n [Entitic mass] Erythrocy 31.8 - g/dl Normal No Mar 11 te mean 35.4 informati 2016 7:20 corpuscul on in PM ar source hemoglobi data n concentra tion [Mass/vol ume] by Automated count Erythrocy 82.2 - fl Normal No Mar 11 te mean 97.8 informati 2016 7:20 corpuscul on in PM ar volume source [Entitic data volume] by Automated count Monocytes 0.1 - 1.0 K/mm3 Normal No Mar 11 informati 2016 7:20 [#/volume on in PM ] in source Blood by data Automated count Monocytes 1.7 - 9.3 % Normal No Mar 11 /100 informati 2017 7:20 leukocyte on in PM s in source Blood by data Automated count Platelet 7.4 - fl Normal No Mar 11 mean 10.4 informati 2016 7:20 volume on in PM [Entitic source volume] data in Blood by Automated count Platelets 142 - 424 K/mm3 Normal No Mar 11 informati 2016 7:20 [#/volume on in PM ] in source Blood data Erythrocy 4.6 - 6.2 M/mm3 Normal No Mar 11 heike informati 2017 7:20 [#/volume on in PM ] in source Amniotic data fluid Erythrocy 11.5 - % Normal No Mar 11 te 17.5 informati 2017 7:20 distribut on in PM ion width source [Entitic data volume] by Automated count Leukocyte 4.8 - K/MM3 Normal No Mar 11 s 10.8 informati 2016 7:20 [#/volume on in PM ] in source Blood data Lipid 1996 panel in Serum or Plasma Observa Value Referen Units Interpr Notes Date tion ce etation Range Cholester < 200 mg/dL High No Mar 09 ol informati 2017 8:25 [Moles/vo on in AM lume] in source Unspecifi data ed specimen Cholester 40 - 60 MG/DL Normal No Mar 09 ol in HDL informati 2017 8:25 on in AM [Mass/vol source ume] in data Serum or Plasma Cholester 0 - 130 mg/dL High No Mar 09 ol in LDL informati 2017 8:25 on in AM [Mass/vol source ume] in data Serum or Plasma by calculati on Triglycer 30 - 200 mg/dL High No Mar 09 adam informati 2017 8:25 [Moles/vo on in AM lume] in source Serum or data Plasma Cholester 0 - 40 No High No Mar 09 ol in informati informati 2017 8:25 VLDL on in on in AM [Mass/vol source source ume] in data data Serum or Plasma Hepatic function 2000 panel in Serum or Plasma Observa Value Referen Units Interpr Notes Date tion ce etation Range Albumin 3.4 - 5.0 gm/dL Normal No Mar 09 [Mass/vol informati 2017 8:25 ume] in on in AM Serum or source Plasma data Alkaline 46 - 116 U/L High No Mar 09 phosphata informati 2017 8:25 se on in AM [Enzymati source c data activity/ volume] in Serum or Plasma Bilirubin 0.0 - 0.2 mg/dL Normal No Mar 09 .direct informati 2017 8:25 [Mass/vol on in AM ume] in source Serum or data Plasma Bilirubin 0 - 0.9 mg/dL Normal No Mar 09 .indirect informati 2017 8:25 on in AM [Mass/vol source ume] in data Serum or Plasma Bilirubin 0.2 - 1.0 mg/dL Normal No Mar 09 .total informati 2016 8:25 [Mass/vol on in AM ume] in source Serum or data Plasma Aspartate 15 - 37 U/L High No Mar 09 informati 2016 8:25 aminotran on in AM sferase source [Enzymati data c activity/ volume] in Serum or Plasma Alanine 12 - 78 U/L High No Mar 09 aminotran informati 2016 8:25 sferase on in AM [Enzymati source c data activity/ volume] in Serum or Plasma Protein 6.4 - 8.2 gm/dL Normal No Mar 09 [Mass/vol informati 2016 8:25 ume] in on in AM Serum or source Plasma data Urea nitrogen [Mass/volume] in Serum or Plasma Observa Value Referen Units Interpr Notes Date tion ce etation Range Urea 7 - 18 mg/dL Normal No Mar 09 nitrogen informati 2016 8:25 [Mass/vol on in AM ume] in source Serum or data Plasma Creatine kinase [Enzymatic activity/volume] in Serum or Plasma Observa Value Referen Units Interpr Notes Date tion ce etation Range Creatine 39 - 308 U/L High No Mar 09 kinase informati 2016 8:25 [Enzymati on in AM c source activity/ data volume] in Serum or Plasma CREATININE Observa Value Referen Units Interpr Notes Date tion ce etation Range Creatinin 0.70 - mg/dL Normal No Mar 09 e 1.30 informati 2016 8:25 [Mass/vol on in AM ume] in source Serum or data Plasma Estimated >60 ML/MIN No REFERENCE Mar 09 informati RANGE: 2017 8:25 glomerula on in >60 AM r source ML/MIN/1. filtratio data 73 SQUARE n rate METERSIf (GF this patient is -A merican, then multiply theresult by 1.210. CBC W Auto Differential panel in Blood Observa Value Referen Units Interpr Notes Date tion ce etation Range Basophils 0 - 0.2 K/MM3 Normal No Mar 09 informati 2016 8:25 [#/volume on in AM ] in source Blood by data Automated count Basophils 0.1 - 2.0 % Normal No Mar 09 /100 informati 2016 8:25 leukocyte on in AM s in source Blood by data Automated count Eosinophi 0.0 - 0.4 K/mm3 Normal No Aug 18 ls informati 2016 8:25 [#/volume on in AM ] in source Blood by data Automated count Eosinophi 0.1 - % Normal No Mar 09 ls/100 12.0 informati 2016 8:25 leukocyte on in AM s in source Blood by data Automated count Granulocy 1.3 - 8.0 K/mm3 Normal No Feb 18 heike informati 2016 8:25 [#/volume on in AM ] in source Blood by data Automated count Granulocy 37.0 - % Normal No Mar 09 heike/100 80.0 informati 2016 8:25 leukocyte on in AM s in source Blood by data Automated count Hematocri 42.0 - % Normal No Mar 09 t [Volume 52.0 informati 2016 8:25 on in AM Fraction] source of Blood data Hemoglobi 14.1 - g/dL Normal No Mar 09 n 18.0 informati 2016 8:25 [Mass/vol on in AM ume] in source Blood data Lymphocyt 0.7 - 4.5 K/mm3 Normal No Mar 09 es informati 2016 8:25 [#/volume on in AM ] in source Unspecifi data ed specimen by Automated count Lymphocyt 10 - 50 % Normal No Mar 09 es informati 2016 8:25 [#/volume on in AM ] in source Unspecifi data ed specimen by Automated count Erythrocy 27 - 31.2 pg Normal No Mar 09 te mean informati 2016 8:25 corpuscul on in AM ar source hemoglobi data n [Entitic mass] Erythrocy 31.8 - g/dl Normal No Mar 09 te mean 35.4 informati 2016 8:25 corpuscul on in AM ar source hemoglobi data n concentra tion [Mass/vol ume] by Automated count Erythrocy 82.2 - fl Normal No Mar 09 te mean 97.8 informati 2016 8:25 corpuscul on in AM ar volume source [Entitic data volume] by Automated count Monocytes 0.1 - 1.0 K/mm3 Normal No Feb 18 informati 2016 8:25 [#/volume on in AM ] in source Blood by data Automated count Monocytes 1.7 - 9.3 % Normal No Feb 18 /100 informati 2016 8:25 leukocyte on in AM s in source Blood by data Automated count Platelet 7.4 - fl Normal No Mar 09 mean 10.4 informati 2017 8:25 volume on in AM [Entitic source volume] data in Blood by Automated count Platelets 142 - 424 K/mm3 Normal No Mar 09 informati 2017 8:25 [#/volume on in AM ] in source Blood data Erythrocy 4.6 - 6.2 M/mm3 Normal No Mar 09 heike informati 2017 8:25 [#/volume on in AM ] in source Amniotic data fluid Erythrocy 11.5 - % Normal No Mar 09 te 17.5 informati 2016 8:25 distribut on in AM ion width source [Entitic data volume] by Automated count Leukocyte 4.8 - K/MM3 Normal No Mar 09 s 10.8 informati 2017 8:25 [#/volume on in AM ] in source Blood data Creatine kinase [Enzymatic activity/volume] in Serum or Plasma Observa Value Referen Units Interpr Notes Date tion ce etation Range COMMENTS TO ORDER ENTRY: DRAWN PER RN Creatine 39 - 308 U/L High No Mar 02 kinase informati 2017 8:35 [Enzymati on in AM c source activity/ data volume] in Serum or Plasma Comprehensive metabolic 2000 panel in Serum or Plasma Observa Value Referen Units Interpr Notes Date tion ce etation Range Albumin/G 1.1 - 1.8 No Normal No Mar 02 lobulin informati informati 2017 8:35 [Mass on in on in AM ratio] in source source Serum or data data Plasma Albumin 3.4 - 5.0 gm/dL Normal No Mar 02 [Mass/vol informati 2017 8:35 ume] in on in AM Serum or source Plasma data Alkaline 46 - 116 U/L Normal No Mar 02 phosphata informati 2017 8:35 se on in AM [Enzymati source c data activity/ volume] in Serum or Plasma Bilirubin 0.2 - 1.0 mg/dL Normal No Mar 02 .total informati 2017 8:35 [Mass/vol on in AM ume] in source Serum or data Plasma Urea 7 - 18 mg/dL Normal No Mar 02 nitrogen informati 2017 8:35 [Mass/vol on in AM ume] in source Serum or data Plasma Calcium 8.5 - mg/dL Normal No Mar 02 [Mass/vol 10.1 informati 2017 8:35 ume] in on in AM Serum or source Plasma data Chloride 98 - 107 mmoL/L Normal No Mar 02 [Moles/vo informati 2017 8:35 lume] in on in AM Serum or source Plasma data Carbon 21.0 - mmoL/L Normal No Mar 02 dioxide, 32.0 informati 2016 8:35 total on in AM [Moles/vo source lume] in data Serum or Plasma Creatinin 0.70 - mg/dL Normal No Mar 02 e 1.30 informati 2016 8:35 [Mass/vol on in AM ume] in source Serum or data Plasma Estimated >60 ML/MIN No REFERENCE Mar 02 informati RANGE: 2016 8:35 glomerula on in >60 AM r source ML/MIN/1. filtratio data 73 SQUARE n rate METERSIf (GF this patient is -A merican, then multiply theresult by 1.210. Globulin 1.3 - 3.2 gm/dL High No Mar 02 [Mass/vol informati 2016 8:35 ume] in on in AM Serum source data Glucose 74 - 106 mg/dL High No Mar 02 [Mass/vol informati 2016 8:35 ume] in on in AM Serum or source Plasma data Potassium 3.5 - 5.1 mmoL/L Normal No Mar 02 informati 2016 8:35 [Moles/vo on in AM lume] in source Serum or data Plasma Sodium 136 - 145 mmoL/L Normal No Mar 02 [Moles/vo informati 2016 8:35 lume] in on in AM Serum or source Plasma data Aspartate 15 - 37 U/L High No Mar 02 informati 2016 8:35 aminotran on in AM sferase source [Enzymati data c activity/ volume] in Serum or Plasma Alanine 12 - 78 U/L High No Mar 02 aminotran informati 2016 8:35 sferase on in AM [Enzymati source c data activity/ volume] in Serum or Plasma Protein 6.4 - 8.2 gm/dL Normal No Mar 02 [Mass/vol informati 2016 8:35 ume] in on in AM Serum or source Plasma data Urea nitrogen [Mass/volume] in Serum or Plasma Observa Value Referen Units Interpr Notes Date tion ce etation Range COMMENTS TO ORDER ENTRY: DRAWN PER RN Urea 7 - 18 mg/dL Normal No Mar 02 nitrogen informati 2016 8:35 [Mass/vol on in AM ume] in source Serum or data Plasma Creatine kinase [Enzymatic activity/volume] in Serum or Plasma Observa Value Referen Units Interpr Notes Date tion ce etation Range COMMENTS TO ORDER ENTRY: DRAWN PER RN Creatine 39 - 308 U/L High No Mar 02 kinase informati 2016 8:35 [Enzymati on in AM c source activity/ data volume] in Serum or Plasma CREATININE Observa Value Referen Units Interpr Notes Date tion ce etation Range COMMENTS TO ORDER ENTRY: DRAWN PER RN Creatinin 0.70 - mg/dL Normal No Mar 02 e 1.30 informati 2016 8:35 [Mass/vol on in AM ume] in source Serum or data Plasma Estimated >60 ML/MIN No REFERENCE Mar 02 informati RANGE: 2017 8:35 glomerula on in >60 AM r source ML/MIN/1. filtratio data 73 SQUARE n rate METERSIf (GF this patient is -A merican, then multiply theresult by 1.210. CBC W Auto Differential panel in Blood Observa Value Referen Units Interpr Notes Date tion ce etation Range COMMENTS TO ORDER ENTRY: DRAWN PER RN Basophils 0 - 0.2 K/MM3 Normal No Mar 02 informati 2016 8:35 [#/volume on in AM ] in source Blood by data Automated count Basophils 0.1 - 2.0 % Normal No Mar 02 informati 2016 8:35 leukocyte on in AM s in source Blood by data Automated count Eosinophi 0.0 - 0.4 K/mm3 Normal No Mar 02 ls informati 2016 8:35 [#/volume on in AM ] in source Blood by data Automated count Eosinophi 0.1 - % Normal No Mar 02 ls/100 12.0 informati 2016 8:35 leukocyte on in AM s in source Blood by data Automated count Granulocy 1.3 - 8.0 K/mm3 Normal No Mar 02 heike informati 2016 8:35 [#/volume on in AM ] in source Blood by data Automated count Granulocy 37.0 - % Normal No Mar 02 heike/100 80.0 informati 2016 8:35 leukocyte on in AM s in source Blood by data Automated count Hematocri 42.0 - % Normal No Mar 02 t [Volume 52.0 informati 2016 8:35 on in AM Fraction] source of Blood data Hemoglobi 14.1 - g/dL Normal No Mar 02 n 18.0 informati 2016 8:35 [Mass/vol on in AM ume] in source Blood data Lymphocyt 0.7 - 4.5 K/mm3 Normal No Mar 02 es informati 2016 8:35 [#/volume on in AM ] in source Unspecifi data ed specimen by Automated count Lymphocyt 10 - 50 % Normal No Mar 02 es informati 2016 8:35 [#/volume on in AM ] in source Unspecifi data ed specimen by Automated count Erythrocy 27 - 31.2 pg Normal No Mar 02 te mean informati 2016 8:35 corpuscul on in AM ar source hemoglobi data n [Entitic mass] Erythrocy 31.8 - g/dl Normal No Mar 02 te mean 35.4 informati 2016 8:35 corpuscul on in AM ar source hemoglobi data n concentra tion [Mass/vol ume] by Automated count Erythrocy 82.2 - fl Normal No Mar 02 te mean 97.8 informati 2016 8:35 corpuscul on in AM ar volume source [Entitic data volume] by Automated count Monocytes 0.1 - 1.0 K/mm3 Normal No Mar 02 informati 2016 8:35 [#/volume on in AM ] in source Blood by data Automated count Monocytes 1.7 - 9.3 % Normal No Mar 02 /100 informati 2017 8:35 leukocyte on in AM s in source Blood by data Automated count Platelet 7.4 - fl Normal No Mar 02 mean 10.4 informati 2016 8:35 volume on in AM [Entitic source volume] data in Blood by Automated count Platelets 142 - 424 K/mm3 Normal No Mar 02 informati 2016 8:35 [#/volume on in AM ] in source Blood data Erythrocy 4.6 - 6.2 M/mm3 Normal No Mar 02 heike informati 2016 8:35 [#/volume on in AM ] in source Amniotic data fluid Erythrocy 11.5 - % Normal No Mar 02 te 17.5 informati 2016 8:35 distribut on in AM ion width source [Entitic data volume] by Automated count Leukocyte 4.8 - K/MM3 Normal No Mar 02 s 10.8 informati 2016 8:35 [#/volume on in AM ] in source Blood data Urea nitrogen [Mass/volume] in Serum or Plasma Observa Value Referen Units Interpr Notes Date tion ce etation Range Urea 7 - 18 mg/dL Normal No Feb 23 nitrogen informati 2016 8:25 [Mass/vol on in AM ume] in source Serum or data Plasma Creatine kinase [Enzymatic activity/volume] in Serum or Plasma Observa Value Referen Units Interpr Notes Date tion ce etation Range Creatine 39 - 308 U/L Normal No Feb 23 kinase informati 2016 8:25 [Enzymati on in AM c source activity/ data volume] in Serum or Plasma CREATININE Observa Value Referen Units Interpr Notes Date tion ce etation Range Creatinin 0.70 - mg/dL Normal No Feb 23 e 1.30 informati 2016 8:25 [Mass/vol on in AM ume] in source Serum or data Plasma Estimated >60 ML/MIN No REFERENCE Feb 23 informati RANGE: 2017 8:25 glomerula on in >60 AM r source ML/MIN/1. filtratio data 73 SQUARE n rate METERSIf (GF this patient is -A merican, then multiply theresult by 1.210. CBC W Auto Differential panel in Blood Observa Value Referen Units Interpr Notes Date ti ce etation Range Basophils 0 - 0.2 K/MM3 Normal No Feb 23 informati 2016 8:25 [#/volume on in AM ] in source Blood by data Automated count Basophils 0.1 - 2.0 % Normal No Feb 23 /100 informati 2016 8:25 leukocyte on in AM s in source Blood by data Automated count Eosinophi 0.0 - 0.4 K/mm3 Normal No Feb 23 ls informati 2016 8:25 [#/volume on in AM ] in source Blood by data Automated count Eosinophi 0.1 - % Normal No Feb 23 ls/100 12.0 informati 2016 8:25 leukocyte on in AM s in source Blood by data Automated count Granulocy 1.3 - 8.0 K/mm3 Normal No Feb 23 heike informati 2016 8:25 [#/volume on in AM ] in source Blood by data Automated count Granulocy 37.0 - % Normal No Feb 23 heike/100 80.0 informati 2016 8:25 leukocyte on in AM s in source Blood by data Automated count Hematocri 42.0 - % Normal No Feb 23 t [Volume 52.0 informati 2016 8:25 on in AM Fraction] source of Blood data Hemoglobi 14.1 - g/dL Normal No Feb 23 n 18.0 informati 2016 8:25 [Mass/vol on in AM ume] in source Blood data Lymphocyt 0.7 - 4.5 K/mm3 Normal No Feb 23 es informati 2016 8:25 [#/volume on in AM ] in source Unspecifi data ed specimen by Automated count Lymphocyt 10 - 50 % Normal No Feb 23 es informati 2017 8:25 [#/volume on in AM ] in source Unspecifi data ed specimen by Automated count Erythrocy 27 - 31.2 pg High No Feb 23 te mean informati 2016 8:25 corpuscul on in AM ar source hemoglobi data n [Entitic mass] Erythrocy 31.8 - g/dl Normal No Feb 23 te mean 35.4 informati 2016 8:25 corpuscul on in AM ar source hemoglobi data n concentra tion [Mass/vol ume] by Automated count Erythrocy 82.2 - fl Normal No Feb 23 te mean 97.8 informati 2016 8:25 corpuscul on in AM ar volume source [Entitic data volume] by Automated count Monocytes 0.1 - 1.0 K/mm3 Normal No Feb 23 informati 2016 8:25 [#/volume on in AM ] in source Blood by data Automated count Monocytes 1.7 - 9.3 % Normal No Feb 23 /100 informati 2017 8:25 leukocyte on in AM s in source Blood by data Automated count Platelet 7.4 - fl Normal No Feb 23 mean 10.4 informati 2016 8:25 volume on in AM [Entitic source volume] data in Blood by Automated count Platelets 142 - 424 K/mm3 Normal No Feb 23 informati 2016 8:25 [#/volume on in AM ] in source Blood data Erythrocy 4.6 - 6.2 M/mm3 Normal No Feb 23 heike informati 2016 8:25 [#/volume on in AM ] in source Amniotic data fluid Erythrocy 11.5 - % Normal No Feb 23 te 17.5 informati 2016 8:25 distribut on in AM ion width source [Entitic data volume] by Automated count Leukocyte 4.8 - K/MM3 Normal No Feb 23 s 10.8 informati 2016 8:25 [#/volume on in AM ] in source Blood data Basic metabolic panel in Blood Observa Value Referen Units Interpr Notes Date tion ce etation Range Urea 7 - 18 mg/dL Normal No Feb 16 nitrogen informati 2017 8:40 [Mass/vol on in AM ume] in source Serum or data Plasma Calcium 8.5 - mg/dL Normal No Feb 16 [Mass/vol 10.1 informati 2016 8:40 ume] in on in AM Serum or source Plasma data Chloride 98 - 107 mmoL/L Normal No Feb 16 [Moles/vo informati 2016 8:40 lume] in on in AM Serum or source Plasma data Carbon 21.0 - mmoL/L Normal No Feb 16 dioxide, 32.0 informati 2016 8:40 total on in AM [Moles/vo source lume] in data Serum or Plasma Creatinin 0.70 - mg/dL Normal No Feb 16 e 1.30 informati 2016 8:40 [Mass/vol on in AM ume] in source Serum or data Plasma Estimated >60 ML/MIN No REFERENCE Feb 16 informati RANGE: 2017 8:40 glomerula on in >60 AM r source ML/MIN/1. filtratio data 73 SQUARE n rate METERSIf (GF this patient is -A merican, then multiply theresult by 1.210. Glucose 74 - 106 mg/dL High No Feb 16 [Mass/vol informati 2016 8:40 ume] in on in AM Serum or source Plasma data Potassium 3.5 - 5.1 mmoL/L Normal No Feb 16 informati 2016 8:40 [Moles/vo on in AM lume] in source Serum or data Plasma Sodium 136 - 145 mmoL/L Normal No Feb 16 [Moles/vo informati 2016 8:40 lume] in on in AM Serum or source Plasma data Vancomycin [Mass/volume] in Serum or Plasma --trough Observa Value Referen Units Interpr Notes Date tion ce etation Range Vancomyci 5.0 - mcg/mL High No Feb 16 n 10.0 informati 2016 8:40 [Mass/vol on in AM ume] in source Serum or data Plasma --trough Vancomycin [Mass/volume] in Serum or Plasma --trough Observa Value Referen Units Interpr Notes Date ti ce etation Range Vancomyci 5.0 - mcg/mL High No Feb 10 n 10.0 informati 2016 8:30 [Mass/vol on in AM ume] in source Serum or data Plasma --trough Vancomycin [Mass/volume] in Serum or Plasma --trough Observa Value Referen Units Interpr Notes Date tion ce etation Range Vancomyci 5.0 - mcg/mL High No Feb 10 n 10.0 informati 2016 8:30 [Mass/vol on in AM ume] in source Serum or data Plasma --trough Vancomycin [Mass/volume] in Serum or Plasma --trough Observa Value Referen Units Interpr Notes Date tion ce etation Range Vancomyci 5.0 - mcg/mL High No Feb 10 n 10.0 informati 2016 8:30 [Mass/vol on in AM ume] in source Serum or data Plasma --trough CBC W Auto Differential panel in Blood Observa Value Referen Units Interpr Notes Date ti ce etation Range Basophils 0 - 0.2 K/MM3 Normal No Feb 08 informati 2016 1:35 [#/volume on in PM ] in source Blood by data Automated count Basophils 0.1 - 2.0 % Normal No Feb 08 informati 2016 1:35 leukocyte on in PM s in source Blood by data Automated count Eosinophi 0.0 - 0.4 K/mm3 Normal No Feb 08 ls informati 2016 1:35 [#/volume on in PM ] in source Blood by data Automated count Eosinophi 0.1 - % Normal No Feb 08 ls/100 12.0 informati 2016 1:35 leukocyte on in PM s in source Blood by data Automated count Granulocy 1.3 - 8.0 K/mm3 Normal No Feb 08 heike informati 2016 1:35 [#/volume on in PM ] in source Blood by data Automated count Granulocy 37.0 - % Normal No Feb 08 heike/100 80.0 informati 2016 1:35 leukocyte on in PM s in source Blood by data Automated count Hematocri 42.0 - % Normal No Feb 08 t [Volume 52.0 informati 2016 1:35 on in PM Fraction] source of Blood data Hemoglobi 14.1 - g/dL Normal No Feb 08 n 18.0 informati 2016 1:35 [Mass/vol on in PM ume] in source Blood data Lymphocyt 0.7 - 4.5 K/mm3 Normal No Feb 08 es informati 2016 1:35 [#/volume on in PM ] in source Unspecifi data ed specimen by Automated count Lymphocyt 10 - 50 % Normal No Feb 08 es informati 2016 1:35 [#/volume on in PM ] in source Unspecifi data ed specimen by Automated count Erythrocy 27 - 31.2 pg Normal No Feb 08 te mean inform2016 1:35 corpuscul on in PM ar source hemoglobi data n [Entitic mass] Erythrocy 31.8 - g/dl Normal No Feb 08 te mean 35.4 inform2016 1:35 corpuscul on in PM ar source hemoglobi data n concentra tion [Mass/vol ume] by Automated count Erythrocy 82.2 - fl Normal No Feb 08 te mean 97.8 informati 2016 1:35 corpuscul on in PM ar volume source [Entitic data volume] by Automated count Monocytes 0.1 - 1.0 K/mm3 Normal No Feb 08 informati 2016 1:35 [#/volume on in PM ] in source Blood by data Automated count Monocytes 1.7 - 9.3 % Normal No Feb 08 /100 inform2016 1:35 leukocyte on in PM s in source Blood by data Automated count Platelet 7.4 - fl Normal No Feb 08 mean 10.4 informati 2016 1:35 volume on in PM [Entitic source volume] data in Blood by Automated count Platelets 142 - 424 K/mm3 Normal No Feb 082016 1:35 [#/volume on in PM ] in source Blood data Erythrocy 4.6 - 6.2 M/mm3 Normal No Feb 08 heike inform2016 1:35 [#/volume on in PM ] in source Amniotic data fluid Erythrocy 11.5 - % Normal No Feb 08 te 17.5 inform2016 1:35 distribut on in PM ion width source [Entitic data volume] by Automated count Leukocyte 4.8 - K/MM3 Normal No Feb 08 s 10.8 informati 2016 1:35 [#/volume on in PM ] in source Blood data Erythrocyte sedimentation rate by Westergren method Observa Value Referen Units Interpr Notes Date tion ce etation Range Erythrocy 0 - 15 mm/hr Normal No Feb 08 te informati 2016 1:35 sedimenta on in PM tion rate source by data Westergre n method Comprehensive metabolic 2000 panel in Serum or Plasma Observa Value Referen Units Interpr Notes Date tion ce etation Range Albumin/G 1.1 - 1.8 No Low No Feb 08 lobulin informati informati 2016 1:35 [Mass on in on in PM ratio] in source source Serum or data data Plasma Albumin 3.4 - 5.0 gm/dL Normal No Feb 08 [Mass/vol informati 2016 1:35 ume] in on in PM Serum or source Plasma data Alkaline 46 - 116 U/L Normal No Feb 08 phosphata informati 2016 1:35 se on in PM [Enzymati source c data activity/ volume] in Serum or Plasma Bilirubin 0.2 - 1.0 mg/dL Normal No Feb 08 .total informati 2016 1:35 [Mass/vol on in PM ume] in source Serum or data Plasma Urea 7 - 18 mg/dL Normal No Feb 08 nitrogen informati 2016 1:35 [Mass/vol on in PM ume] in source Serum or data Plasma Calcium 8.5 - mg/dL Normal No Feb 08 [Mass/vol 10.1 informati 2016 1:35 ume] in on in PM Serum or source Plasma data Chloride 98 - 107 mmoL/L Normal No Feb 08 [Moles/vo informati 2016 1:35 lume] in on in PM Serum or source Plasma data Carbon 21.0 - mmoL/L Normal No Feb 08 dioxide, 32.0 informati 2017 1:35 total on in PM [Moles/vo source lume] in data Serum or Plasma Creatinin 0.70 - mg/dL Normal No Feb 08 e 1.30 informati 2017 1:35 [Mass/vol on in PM ume] in source Serum or data Plasma Estimated >60 ML/MIN No REFERENCE Feb 08 informati RANGE: 2017 1:35 glomerula on in >60 PM r source ML/MIN/1. filtratio data 73 SQUARE n rate METERSIf (GF this patient is -A merican, then multiply theresult by 1.210. Globulin 1.3 - 3.2 gm/dL High No Feb 08 [Mass/vol informati 2016 1:35 ume] in on in PM Serum source data Glucose 74 - 106 mg/dL Normal No Feb 08 [Mass/vol informati 2016 1:35 ume] in on in PM Serum or source Plasma data Potassium 3.5 - 5.1 mmoL/L Normal MAY BE Feb 08 ELEVATED 2016 1:35 [Moles/vo DUE TO PM lume] in SLIGHT Serum or HEMOLYSIS Plasma Sodium 136 - 145 mmoL/L Normal No Feb 08 [Moles/vo informati 2017 1:35 lume] in on in PM Serum or source Plasma data Aspartate 15 - 37 U/L High MAY BE Feb 08 ELEVATED 2016 1:35 aminotran DUE TO PM sferase SLIGHT [Enzymati HEMOLYSIS c activity/ volume] in Serum or Plasma Alanine 12 - 78 U/L Normal No Feb 08 aminotran inform2016 1:35 sferase on in PM [Enzymati source c data activity/ volume] in Serum or Plasma Protein 6.4 - 8.2 gm/dL High No Feb 08 [Mass/vol inform2016 1:35 ume] in on in PM Serum or source Plasma data CRP Observa Value Referen Units Interpr Notes Date tion ce etation Range CRP 0.0 - 0.9 MG/DL No No Feb 08 informati informati 2016 1:35 on in on in PM source source data data Vancomycin [Mass/volume] in Serum or Plasma --trough Observa Value Referen Units Interpr Notes Date tion ce etation Range Vancomyci 5.0 - mcg/mL High No Jan 19 n 10.0 informati 2016 9:00 [Mass/vol on in AM ume] in source Serum or data Plasma --trough Vancomycin [Mass/volume] in Serum or Plasma --trough Observa Value Referen Units Interpr Notes Date tion ce etation Range COMMENTS TO ORDER ENTRY: PATIENT BLOOD DRAW IN OUTPATIENT INFUSION Vancomyci 5.0 - mcg/mL Normal RESULTS Jan 17 n 10.0 CALLED TO 2017 8:50 [Mass/vol AM ume] in PHARMACIS Serum or T: ARMEN Plasma B --trough 01/17/17 0916[facility] ie,Ken Bernal CBC W Auto Differential panel in Blood Observa Value Referen Units Interpr Notes Date tion ce etation Range Basophils 0 - 0.2 K/MM3 Normal No Jan 15 inform2016 3:20 [#/volume on in PM ] in source Blood by data Automated count Basophils 0.1 - 2.0 % Normal No Jan 15 informati 2016 3:20 leukocyte on in PM s in source Blood by data Automated count Eosinophi 0.0 - 0.4 K/mm3 Normal No Jan 15 ls informati 2016 3:20 [#/volume on in PM ] in source Blood by data Automated count Eosinophi 0.1 - % Normal No Jan 15 ls/100 12.0 informati 2016 3:20 leukocyte on in PM s in source Blood by data Automated count Granulocy 1.3 - 8.0 K/mm3 Normal No Jan 15 heike informati 2016 3:20 [#/volume on in PM ] in source Blood by data Automated count Granulocy 37.0 - % Normal No Jan 15 heike/100 80.0 informati 2016 3:20 leukocyte on in PM s in source Blood by data Automated count Hematocri 42.0 - % Normal No Jan 15 t [Volume 52.0 informati 2016 3:20 on in PM Fraction] source of Blood data Hemoglobi 14.1 - g/dL No No Jan 15 n 18.0 informati informati 2016 3:20 [Mass/vol on in on in PM ume] in source source Blood data data Lymphocyt 0.7 - 4.5 K/mm3 Normal No Jan 15 es informati 2016 3:20 [#/volume on in PM ] in source Unspecifi data ed specimen by Automated count Lymphocyt 10 - 50 % Normal No Jan 15 informati 2016 3:20 [#/volume on in PM ] in source Unspecifi data ed specimen by Automated count Erythrocy 27 - 31.2 pg Normal No Jan 15 te mean informati 2016 3:20 corpuscul on in PM ar source hemoglobi data n [Entitic mass] Erythrocy 31.8 - g/dl Normal No Jan 15 te mean 35.4 informati 2016 3:20 corpuscul on in PM ar source hemoglobi data n concentra tion [Mass/vol ume] by Automated count Erythrocy 82.2 - fl Normal No Jan 15 te mean 97.8 informati 2016 3:20 corpuscul on in PM ar volume source [Entitic data volume] by Automated count Monocytes 0.1 - 1.0 K/mm3 Normal No Jan 15 informati 2016 3:20 [#/volume on in PM ] in source Blood by data Automated count Monocytes 1.7 - 9.3 % Normal No Jan 15 /100 informati 2016 3:20 leukocyte on in PM s in source Blood by data Automated count Platelet 7.4 - fl Normal No Jan 15 mean 10.4 informati 2016 3:20 volume on in PM [Entitic source volume] data in Blood by Automated count Platelets 142 - 424 K/mm3 Normal No Jan 15 informati 2016 3:20 [#/volume on in PM ] in source Blood data Erythrocy 4.6 - 6.2 M/mm3 Normal No Jan 15 heike informati 2016 3:20 [#/volume on in PM ] in source Amniotic data fluid Erythrocy 11.5 - % Normal No Jan 15 te 17.5 informati 2016 3:20 distribut on in PM ion width source [Entitic data volume] by Automated count Leukocyte 4.8 - K/MM3 Normal No Jan 15 s 10.8 informati 2016 3:20 [#/volume on in PM ] in source Blood data Erythrocyte sedimentation rate by Westergren method Observa Value Referen Units Interpr Notes Date tion ce etation Range Erythrocy 0 - 15 mm/hr Normal No Jan 15 te informati 2016 3:20 sedimenta on in PM tion rate source by data Westergre n method Comprehensive metabolic 2000 panel in Serum or Plasma Observa Value Referen Units Interpr Notes Date tion ce etation Range Albumin/G 1.1 - 1.8 No Low No Jan 15 lobulin informati informati 2016 3:20 [Mass on in on in PM ratio] in source source Serum or data data Plasma Albumin 3.4 - 5.0 gm/dL Normal No Jan 15 [Mass/vol informati 2016 3:20 ume] in on in PM Serum or source Plasma data Alkaline 46 - 116 U/L Normal No Jan 15 phosphata informati 2016 3:20 se on in PM [Enzymati source c data activity/ volume] in Serum or Plasma Bilirubin 0.2 - 1.0 mg/dL Normal No Jan 15 .total informati 2016 3:20 [Mass/vol on in PM ume] in source Serum or data Plasma Urea 7 - 18 mg/dL Normal No Jan 15 nitrogen informati 2016 3:20 [Mass/vol on in PM ume] in source Serum or data Plasma Calcium 8.5 - mg/dL Normal No Jan 15 [Mass/vol 10.1 informati 2017 3:20 ume] in on in PM Serum or source Plasma data Chloride 98 - 107 mmoL/L Normal No Jan 15 [Moles/vo informati 2016 3:20 lume] in on in PM Serum or source Plasma data Carbon 21.0 - mmoL/L Normal No Jan 15 dioxide, 32.0 informati 2017 3:20 total on in PM [Moles/vo source lume] in data Serum or Plasma Creatinin 0.70 - mg/dL Normal No Jan 15 e 1.30 2016 3:20 [Mass/vol on in PM ume] in source Serum or data Plasma Estimated >60 ML/MIN No REFERENCE Jan 15 inform RANGE: 2016 3:20 glomerula on in >60 PM r source ML/MIN/1. filtratio data 73 SQUARE n rate METERSIf (GF this patient is -A merican, then multiply theresult by 1.210. Globulin 1.3 - 3.2 gm/dL High No Jan 15 [Mass/vol informati 2016 3:20 ume] in on in PM Serum source data Glucose 74 - 106 mg/dL Normal No Jan 15 [Mass/vol informati 2016 3:20 ume] in on in PM Serum or source Plasma data Potassium 3.5 - 5.1 mmoL/L Normal No Jan 152016 3:20 [Moles/vo on in PM lume] in source Serum or data Plasma Sodium 136 - 145 mmoL/L Low No Jan 15 [Moles/vo 2016 3:20 lume] in on in PM Serum or source Plasma data Aspartate 15 - 37 U/L Normal No Jan 152016 3:20 aminotran on in PM sferase source [Enzymati data c activity/ volume] in Serum or Plasma Alanine 12 - 78 U/L Normal No Jan 15 aminotran 2016 3:20 sferase on in PM [Enzymati source c data activity/ volume] in Serum or Plasma Protein 6.4 - 8.2 gm/dL Normal No Jan 15 [Mass/vol informati 2016 3:20 ume] in on in PM Serum or source Plasma data CRP Observa Value Referen Units Interpr Notes Date tion ce etation Range CRP 0.0 - 0.9 MG/DL High No Jan 15 inform2016 3:20 on in PM source data
--- OUTSIDE RECORDS SUMMARY | 2017-04-25 06:30 | External Medical Summary Rpt ---
[...] Court, Ruddy Burlingregina viper n, [place] venom [id number] induced.e Lab xcess Director: phosphomarilee Lopez [Ratio] , in Phone: Platelet [phone] poor 4 plasma by Coagulati on assay [...] therapi es.Perf ormed at: BN - [facility], [place] [address]Lab Directo r: Louis Lopez MD, Phone: [phone] Activated 0.0 - sec High No Sep [...] 9Positive lume] in Serum >9Perform ed at: [facility] [id number] [place], [place] [id number] [employer]: Samy Tay PhD, Phone: [phone] Antinuclear Antibodies, IFA Observa Value Referen Units Interpr Notes Date tion ce etation Range Nuclear . No No Negative Mar 21 Ab informati informati 2016 [Titer] on in on in <1:80Bord 12:08 PM in Serum source source callie by data data 1:80Posit Immunoflu viktoriya orescence >1:80Perf ormed at: [facility] [id number] [place], [place] [id number] [employer]: Samy Tay PhD, Phone: [phone] Comprehensive metabolic 2000 panel in Serum [...] Date tion ce etation Range COMMENTS TO VACUUM DRUM DRIER OPERATOR: PLEASE ADD TO BLOOD IN LAB Erythrocy 0 - 15 mm/hr High No Mar 132016 5:15 sedimenta on in PM tion rate source by data Westergre n method CRP Observa Value Referen Units Interpr Notes Date tion ce etation Range COMMENTS TO VACUUM DRUM DRIER OPERATOR: PLEASE ADD TO BLOOD IN LAB CRP 0.0 - 0.9 MG/DL High No Mar 132016 5:15 on in PM source data F5 [id number] [Presence] in Blood or Tissue by Molecular genetics method Observa Value Referen Units Interpr Notes Date tion ce etation Range FACTOR V LEIDEN MUTATION: RESULT = NEGATIVE (NO MUTATION FOUND) Performing site: [address] [address] Dir: Abigail Farrell MD For inquiries, the physician may contact Branch: [phone] Lab: [phone] FACTOR V LEIDEN MUTATION: RESULT = NEGATIVE (NO MUTATION FOUND) Performing site: [address] [address] Dir: Abigail Farrell MD For inquiries, the physician may contact Branch: [phone] Lab: [phone] Antithrombin Ag [Units/volume] in Platelet poor plasma [...] [id number] plasma by Mac Matthew on assay [place], [place] [id number] [employer]: Louis Lopez MD, Phone: [phone] Protein S actual/normal in Platelet poor [...] Date tion ce etation Range COMMENTS TO VACUUM DRUM DRIER OPERATOR: DRAWN PER RN Creatine 39 - 308 [...] Date tion ce etation Range COMMENTS TO VACUUM DRUM DRIER OPERATOR: DRAWN PER RN Urea 7 - 18 mg/dL Normal No Mar 02 nitrogen informati 2016 8:35 [Mass/vol on in AM ume] in source Serum or data Plasma Creatine kinase [Enzymatic activity/volume] in Serum or Plasma Observa Value Referen Units Interpr Notes Date tion ce etation Range COMMENTS TO VACUUM DRUM DRIER OPERATOR: DRAWN PER RN Creatine 39 - 308 U/L High No Mar 02 kinase informati 2016 8:35 [Enzymati on in AM c source activity/ data volume] in Serum or Plasma CREATININE Observa Value Referen Units Interpr Notes Date tion ce etation Range COMMENTS TO VACUUM DRUM DRIER OPERATOR: DRAWN PER RN Creatinin 0.70 - mg/dL [...] Date tion ce etation Range COMMENTS TO VACUUM DRUM DRIER OPERATOR: DRAWN PER RN Basophils 0 - 0.2 [...] Date tion ce etation Range COMMENTS TO VACUUM DRUM DRIER OPERATOR: PATIENT BLOOD DRAW IN OUTPATIENT INFUSION Vancomyci 5.0 - mcg/mL Normal RESULTS Jan 17 n 10.0 CALLED TO 2017 8:50 [Mass/vol AM ume] in PHARMACIS Serum or T: ARMEN Plasma B --trough 01/17/17 0916[facility] ie,Ken Bernal CBC W Auto Differential panel [...]
== END 2017-03-13 19:50 | disposition home or self-care (01) ==
LOC: COP 08:15 → 2ND 12:18
PROVIDERS: Internal Medicine Adolescent Medicine
DX: I26.99 Other pulmonary embolism without acute cor pulmonale (principal)
CPT/HCPCS: G0378; J0878; J1335; Q9967

== ENCOUNTER → 2017-04-11 | Outpatient (CLI) | payer OTHER ==
[~2017-04-11] MED LIST changes: +SUNMARK NI21 MG/24 H TD; +XARELTO15 MG PO
[2017-04-11 07:56] LABS: HEMOGLOBIN 15.6 g/dL (14.1-18.0); LYMPH # 2.2 K/mm3 (0.7-4.5); LYMPH % 35.4 % (10-50)
[2017-04-11 11:22] LABS: BUN 9 mg/dL (7-18)
[2017-04-11 11:25] LABS: GFR (ESTIMATED) 97 ML/MIN (>60)
[2017-04-13 08:45] LABS: Hexagonal Phase Phospholipid 11 sec (0-11); PTT-LA 58.3 sec (0.0-51.9); PTT-LA Mix 49.6 sec (0.0-48.9); dRVVT 154.8 sec (0.0-47.0); dRVVT Confirm 2.3 ratio (0.8-1.2); dRVVT Mix 82.8 sec (0.0-47.0)
[2017-04-13 09:37] LABS: Lupus Reflex Interpretation Comment: (.)
== END ==
LOC: LAB 07:15
PROVIDERS: Internal Medicine Adolescent Medicine
DX: M86.8X7 Other osteomyelitis, ankle and foot (principal); R74.8 Abnormal levels of other serum enzymes; R76.0 Raised antibody titer